=== PATIENT | female | born 1955 | race Caucasian/White ===

== ENCOUNTER 2023-03-16 09:55 | Outpatient (OUT) | payer MEDICARE, OTHER, SELFPAY ==
[2023-03-16 10:13] LABS: Basophils Percent Auto 0.3 % (0.2-2.0); Eosinophils Absolute Auto 0.1 10^3/uL (0.0-0.7); Hematocrit 39.2 % (36.0-48.0); Immature Granulocytes Abs Auto 0.02 10^3/uL (0.00-0.03); Immature Granulocytes Pct Auto 0.3 % (0.0-0.5); Lymphocytes Absolute Auto 1.4 10^3/uL (1.2-3.8); Mean Corpuscular HGB Conc 33.2 g/dL (29.9-35.2); Mean Corpuscular Hemoglobin 26.9 pg (26.7-34.0); Mean Corpuscular Volume 81.2 fL (81.0-99.0); Mean Platelet Volume 9.6 fL (9.5-13.5); Monocytes Absolute Auto 0.4 10^3/uL (0.3-0.8); Neutrophils Percent Auto 67.4 % (43.0-75.0); Platelet Count 237 10^3/uL (150-450); Red Blood Count 4.83 10^6/uL (4.20-5.40); Red Cell Distribution Width 13.3 % (11.0-15.0); White Blood Count 5.9 10^3/uL (4.0-11.0)
[2023-03-16 10:56] LABS: Estimated Average Glucose 229 mg/dL; Glycohemoglobin A1C 9.6 % (4.5-6.2)
[2023-03-16 11:41] LABS: Microalbumin Urine Random 1.7 mg/dL (<=30.0)
[2023-03-16 11:49] LABS: Alanine Aminotransferase 20 U/L (14-59); Albumin Level 3.8 g/dL (3.4-5.0); Alkaline Phosphatase 76 U/L (46-116); Anion Gap 14.1; Aspartate Amino Transferase 10 U/L (15-37); BUN Creatinine Ratio 24.7; Bilirubin Total 0.9 mg/dL (0.2-1.0); Carbon Dioxide 28.8 mmol/L (21.0-32.0); Chloride 100 mmol/L (98-107); Chol HDL Ratio 2.6; Cholesterol 185 mg/dL (<=200); Estimated GFR (African America >60 (>=60); Estimated GFR (Non-African Ame >60 (>=60); Globulin 3.7 g/dL; Glucose 180 mg/dL (74-106); HDL Cholesterol 72 mg/dL (40-60); Potassium 3.9 mmol/L (3.5-5.1); Sodium 139 mmol/L (136-145); Total Protein 7.5 g/dL (6.4-8.2); Triglycerides 107 mg/dL (<=150); VLDL CHOLESTEROL 21.4 mg/dL
== END 2023-03-16 09:56 | disposition home or self-care (01) ==
LOC: LAB 09:56
PROVIDERS: PCP Family Medicine; Visit Provider Family Medicine
DX: Z00.00 Encounter for general adult medical examination without abnormal findings (principal); E11.65 Type 2 diabetes mellitus with hyperglycemia; I10 Essential (primary) hypertension; E78.5 Hyperlipidemia, unspecified
CPT/HCPCS: 36415; 80053; 80061; 82043; 83036; 85025

== ENCOUNTER 2023-03-23 09:05 | Outpatient (OUT) | payer MEDICARE, OTHER, SELFPAY ==
--- NOTE | 2023-03-23 09:08 | MM_ITS ---
Patient Name: NATHANAEL KHAN MR#: [id number] : 1955 Exam Date: 03/23/2023 Ordering Doctor: DR Leticia Iglesias M.D. RADIOLOGY REPORT PROCEDURE: MM TOMOSYNTHESIS SCREENING BI COMPARISON: MG MAMM SCREEN 3D AYSE CAD, 08/20/2020. MG MAMM SCREEN AYSE W CAD, 02/13/2017. MG MAMM LT UNI W CAD DIG, 05/25/2014. MG MAMM AYSE SCRN W CAD DIG, 08/26/2013. INDICATIONS: Screening Calculator Name NCI Breast Cancer Risk Assessment Tool 5 Year Breast Cancer Risk 3.20% Lifetime Breast Cancer Risk 9.60% Personal Breast Cancer No Personal Ovarian Cancer No Treatments None Family Cancers Mother with breast cancer at age 42; Daughter with colon cancer at age 29. LOCATION: [facility] BREAST COMPOSITION: Scattered areas fibroglandular density. FINDINGS: DIAGNOSTIC CATEGORY 0--INCOMPLETE: NEED ADDITIONAL IMAGING EVALUATION. RIGHT BREAST: No significant suspicious finding. Scattered benign-appearing lymph nodes are present. No significant change has occurred. LEFT BREAST: Slight increase in size of a chronic circumscribed mass within the lower-outer quadrant, mid breast, not 10 mm in diameter. Spot magnification views and ultrasound evaluation recommended. RECOMMENDATIONS: ADDITIONAL MAMMOGRAPHIC VIEWS REQUIRED: LEFT BREAST - LEFT CRANIOCAUDAL SPOT MAGNIFICATION VIEW - LEFT OBLIQUE SPOT MAGNIFICATION VIEW - ULTRASOUND: LEFT BREAST PLEASE NOTE: A NORMAL MAMMOGRAM DOES NOT EXCLUDE THE POSSIBILITY OF BREAST CANCER. A CLINICALLY SUSPICIOUS PALPABLE LUMP SHOULD BE BIOPSIED. Dictated by: Foreign Carvalho M.D. on 03/28/2023 at 11:28 Approved by: Foreign Carvalho M.D. on 03/28/2023 at 11:43
== END 2023-03-23 09:06 | disposition home or self-care (01) ==
LOC: MAMMO 09:05
PROVIDERS: PCP Family Medicine; Visit Provider Family Medicine
DX: Z12.31 Encounter for screening mammogram for malignant neoplasm of breast (principal); Z80.3 Family history of malignant neoplasm of breast; Z80.0 Family history of malignant neoplasm of digestive organs; N63.23 Unspecified lump in the left breast, lower outer quadrant
CPT/HCPCS: 77063; 77067

== ENCOUNTER 2023-04-25 08:08 | Outpatient (OUT) | payer MEDICARE, OTHER, SELFPAY ==
--- NOTE | 2023-04-25 08:12 | US_ITS ---
Patient Name: NATHANAEL KHAN MR#: [id number] : 1955 Exam Date: 04/25/2023 Ordering Doctor: DR Leticia Iglesias M.D. RADIOLOGY REPORT PROCEDURE: MM DIAGNOSTIC MAMMO UNILAT LT, 04/25/2023, 08:16 US BREAST LT LIMITED, 04/25/2023, 08:27 COMPARISON: MM TOMOSYNTHESIS SCREENING BI, 03/23/2023. MG MAMM SCREEN 3D AYSE CAD, 08/20/2020. MG MAMM SCREEN AYSE W CAD, 02/13/2017. MG MAMM LT UNI W CAD DIG, 05/25/2014. INDICATIONS: abnormal mammogram R92.8 Calculator Name NCI Breast Cancer Risk Assessment Tool 5 Year Breast Cancer Risk 3.20% Lifetime Breast Cancer Risk 9.60% Personal Breast Cancer No Personal Ovarian Cancer No Treatments None Family Cancers Mother with breast cancer at age 42; Daughter with colon cancer at age 29. LOCATION: [facility] BREAST COMPOSITION: Scattered areas fibroglandular density. FINDINGS: DIAGNOSTIC CATEGORY 2--BENIGN FINDING: LEFT BREAST: Spot magnification views demonstrate persistence of a circumscribed 10 mm lesion within the lower-outer quadrant. Ultrasound evaluation demonstrates a benign-appearing simple cyst at the 2 o'clock position 5.5 cm from the nipple, 10 x 9 x 5 millimeters. RECOMMENDATIONS: ROUTINE MAMMOGRAM AND CLINICAL EVALUATION IN 12 MONTHS. PLEASE NOTE: A NORMAL MAMMOGRAM DOES NOT EXCLUDE THE POSSIBILITY OF BREAST CANCER. A CLINICALLY SUSPICIOUS PALPABLE LUMP SHOULD BE BIOPSIED. Dictated by: Foreign Carvalho M.D. on 04/25/2023 at 08:47 Approved by: Foreign Carvalho M.D. on 04/25/2023 at 08:57
--- NOTE | 2023-04-25 08:33 | MM_ITS ---
Patient Name: NATHANAEL KHAN MR#: [id number] : 1955 Exam Date: 04/25/2023 Ordering Doctor: DR Leticia Iglesias M.D. RADIOLOGY REPORT PROCEDURE: MM DIAGNOSTIC MAMMO UNILAT LT, 04/25/2023, 08:16 US BREAST LT LIMITED, 04/25/2023, 08:27 COMPARISON: MM TOMOSYNTHESIS SCREENING BI, 03/23/2023. MG MAMM SCREEN 3D AYSE CAD, 08/20/2020. MG MAMM SCREEN AYSE W CAD, 02/13/2017. MG MAMM LT UNI W CAD DIG, 05/25/2014. INDICATIONS: abnormal mammogram R92.8 Calculator Name NCI Breast Cancer Risk Assessment Tool 5 Year Breast Cancer Risk 3.20% Lifetime Breast Cancer Risk 9.60% Personal Breast Cancer No Personal Ovarian Cancer No Treatments None Family Cancers Mother with breast cancer at age 42; Daughter with colon cancer at age 29. LOCATION: [facility] BREAST COMPOSITION: Scattered areas fibroglandular density. FINDINGS: DIAGNOSTIC CATEGORY 2--BENIGN FINDING: LEFT BREAST: Spot magnification views demonstrate persistence of a circumscribed 10 mm lesion within the lower-outer quadrant. Ultrasound evaluation demonstrates a benign-appearing simple cyst at the 2 o'clock position 5.5 cm from the nipple, 10 x 9 x 5 millimeters. RECOMMENDATIONS: ROUTINE MAMMOGRAM AND CLINICAL EVALUATION IN 12 MONTHS. PLEASE NOTE: A NORMAL MAMMOGRAM DOES NOT EXCLUDE THE POSSIBILITY OF BREAST CANCER. A CLINICALLY SUSPICIOUS PALPABLE LUMP SHOULD BE BIOPSIED. Dictated by: Foreign Carvalho M.D. on 04/25/2023 at 08:47 Approved by: Foreign Carvalho M.D. on 04/25/2023 at 08:57
== END 2023-04-25 08:09 | disposition home or self-care (01) ==
LOC: MAMMO 08:08
PROVIDERS: PCP Family Medicine; Visit Provider Family Medicine
DX: R92.8 Other abnormal and inconclusive findings on diagnostic imaging of breast (principal); Z80.3 Family history of malignant neoplasm of breast; Z80.0 Family history of malignant neoplasm of digestive organs
CPT/HCPCS: 76642; 77065

== ENCOUNTER 2024-12-10 08:50 | Outpatient (OUT) | payer MEDICARE, OTHER, SELFPAY ==
--- OUTSIDE RECORDS SUMMARY | 2024-12-10 08:59 | XMS_ITS | Clinical Summary ---
Author Organization [facility] Address [address] [place], [place] [id number] Care Team Providers Care Mortgage Loan Funder Name Role Phone Leticia Iglesias MD Primary Care Provider [phone] Allergies No known active allergies Medications atorvastatin (LIPITOR) 40 mg tablet Take 40 mg by mouth once daily. Active FARXIGA 10 mg tablet Take 10 mg by mouth daily with breakfast. 12/21/2023 Active lisinopril (ZESTRIL) 10 mg tablet Take 10 mg by mouth once daily. Active metFORMIN (GLUCOPHAGE) 1,000 mg tablet Take 1,000 mg by mouth daily with breakfast. Active Social History Tobacco Use Types Packs/Day Years Used Date Smoking Tobacco: Never Assessed PHQ-2 Answer Date Recorded PHQ-2 score 0 01/20/2024 Area Deprivation Index Answer Date Otoniel rded National Score (1-100), lower number is lower ri sk 60 01/21/2024 State Score (1-10), lower number is lower risk 4 01/21/2024 Data from: https://www.neighborhoodatlas.medicine.[facility].edu/. Last address used for calculation [address] [place] [address] 01/21/2024 Comments Unknown Sex and Gender Information Value Date Recorded Sex Assigned at Not on file Legal Sex Female 11:57 AM EDT Gender Identity Not on file Sexual Orientation Not on file Last Filed Vital Signs Vital Sign Reading Time Taken Comments Blood Pressure - - Pulse - - Temperature - - Respiratory Rate - - Oxygen Saturation - - Inhaled Oxygen Concentration - - Weight 61.4 kg (135 lb 5.8 oz) 01/21/2024 2:07 P M EDT Height 180.3 cm (5' 11 ) 01/21/2024 2:07 PM EDT Body Mass Index 18.88 01/21/2024 2:07 PM EDT Plan of Treatment Health Maintenance Due Date Last Done Comments Anxiety Screening 12/19/1971 Depression Screening 12/19/1971 Hepatitis C Screening 12/19/[address] Colonography 1998 Cologuard (FIT-DNA) 1998 Colonoscopy 1998 Colorectal Cancer Screening 1998 Diabetes Screening 1998 Fecal Occult Blood 1998 Lipid Screening 1998 Sigmoidoscopy 1998 Pneumococcal Vaccine: 50+ (1 of 1 - PCV) 12/19/2003 Shingrix Vaccine (1 of 2) 12/19/2003 Bone Density Screening 2018 Advance Directive Discussion 04/30/2024 Influenza Vaccine (#1) 2024 , 03/02/2022, 02/04/2021, Additional history exists DTaP,Tdap,Td Vaccine (2 - Td or Tdap) 03/03/2029 03/03/2019 RSV Vaccine Completed 05/14/2023 Insurance MEDICARE Member Subscriber Plan / Payer (Ef fective 2018-Present) Name:Susanna Zacarias Member ID:[id number] Relation to Subscriber:Self Name:Susanna Zacarias Subscriber ID:[id number] Payer ID:Not on file Group ID:Not on file Type:Medicare Address: [address] MEDICARE SUPPLEMENT Care Teams Mortgage Loan Funder Relationship Specialty [place] [address] [place] [address] [phone] PCP - General Family Medicine 12/25/18
--- OUTSIDE RECORDS SUMMARY | 2024-12-10 09:03 | XMS_ITS | CCD ---
Author Organization [facility] Care Team Providers Care Resin Painter Name Role Phone DR FOREIGN CARVALHO Consulting Unavailable NUSRAT, DR LETICIA Rao Primary Care Unavailable NUSRAT, DR LETICIA Rao Attending Unavailable NUSRAT, DR LETICIA Rao Admitting Unavailable NUSRAT, DR LETICIA Rao Consulting Unavailable NUSRAT, DR LETICIA Rao Admitting Unavailable NUSRAT, DR LETICIA Rao Primary Care Unavailable NUSRAT, DR LETICIA Rao Consulting Unavailable NUSRAT, DR LETICIA Rao Attending Unavailable Leticia Silverio Leticia Silverio MD Primary Care Provider [phone] SELF Referring Unavailable LETICIA SILVERIO Primary Care Unavailable HERNAN BROWN Attending Nicole rao SELF Referring Unavailable LETICIA SILVERIO Primary Care Unavailable Leticia Silverio MD Primary Care Provider Zayda Castellano APRN Attending Provider Allergies Allergy Classification Reported Allergen(s) Allergy Type Date of Onset Reaction(s) Facility (1 source) patient allergy list reviewed by nurse or physicia Propensity to adverse reactions 5 Comment:Done [employer] Other (1 source) Allergies Reconciled Propensity to adverse reactions Unknown [employer] Other Medications Current Medications Medication Drug Class(es) Dates Sig (Normalized) Sig (Original) atorvastatin 40 mg oral tablet (12 sources) HMG-CoA Reductase Inhibitor Start: 07-23-2023 End: 05-14-2024 take 1 tablet by mouth once daily Atorvastatin 40 mg tablet Active 0 .ROUTE .COMPLEX 90 May 14, 2024 1:20pm TAKE 1 TABLET BY MOUTH DAILY Complies with drug therapy Start: 07-23-2023 End: 07-23-2023 take 1 tablet by mouth once daily Atorvastatin 40 mg tablet Discontinued 40 MG PO Daily July 23, 2023 12:00am July 23, 2023 3:16pm cephalexin 500 mg oral tablet (1 source) Cephalosporin Antibacterial Start: 11-08-2022 take 1 tablet by mouth every twelve hours Cephalexin 500 MG 1 tablet Orally Two times a day for 10 days Oct, Active dapagliflozin 10 mg oral tablet (17 sources) Sodium-Glucose Cotransporter 2 Inhibitor Start: 12-21-2023 take 1 tablet by mouth once daily at breakfast FARXIGA 10 mg tablet Take 10 mg by mouth daily with breakfast. 12/21/2023 Active Start: 07-23-2023 End: 07-03-2024 take 1 tablet by mouth once daily Dapagliflozin Propanediol (Farxiga) 10 mg tablet Active 0 .ROUTE .COMPLEX July 03, 2024 9:36am TAKE 1 TABLET BY MOUTH DAILY Complies with drug therapy Start: 07-23-2023 End: 07-23-2023 take 1 tablet by mouth once daily Dapagliflozin Propanediol (Farxiga) 10 mg tablet Discontinued 10 MG PO Daily July 23, 2023 12:00am July 23, 2023 3:16pm Start: 03-20-2023 take 1 tablet by juan jose th every twenty-four hours Farxiga 10 MG 1 tablet Orally Once a day for 30 day(s) Feb, Active Start: 08-25-2022 take 1 tablet by juan jose th every twenty-four hours FARXIGA 5 MG 1 tablet Orally Once a day for 90 days Jul, Active hydroCHLOROthiazide 12.5 mg / lisinopril 20 mg oral tablet (11 sources) Thiazide Diuretic, Angiotensin Converting Enzyme Inhibitor Start: 07-23-2023 End: 05-14-2024 take 1 tablet by mouth once daily Lisinopril-Hydrochlorothiazide 20-12.5 mg tablet Active 0 .ROUTE .COMPLEX May 14, 2024 1:20pm TAKE 1 TABLET BY MOUTH DAILY Complies with drug therapy Start: 07-23-2023 End: 07-23-2023 take 1 tablet by mouth once daily Lisinopril-Hydrochlorothiazide 20-12.5 m g tablet Discontinued 1 TAB PO Daily July 23, 2023 12:00am July 23, 2023 3:16pm take 1 tablet by juan jose th once daily Lisinopril-hydroCHLOROthiazide 20-12.5 M G TAKE ONE TABLET BY MOUTH DAILY for 90 Active lovastatin 10 mg oral tablet (7 sources) HMG-CoA Reductase Inhibitor Start: 04-11-2024 take 1 tablet by mouth once daily Lovastatin 10 mg tablet Active 10 MG PO Daily April 11, 2024 1:00am FreeTextSi tablet with the evening meal Orally Once a day; Note: Source Status: Continueunsure of dose; Provider: Nusrat Kelly ( ) Complies with drug therapy take 1 tablet by mouth once fernando y Lovastatin 10 MG 1 tablet with the evening meal Orally Once a day unsure of dose Active metFORMIN hydrochloride 1000 mg oral tablet (15 sources) Biguanide Start: 07-23-2023 End: 05-14-2024 take 1 tablet by mouth twice daily Metformin 1,000 mg tablet Active 0 .ROUTE .COMPLEX 180 May 14, 2024 1:20pm TAKE 1 TABLET BY MOUTH TWICE A DAY Complies with drug therapy Start: 07-23-2023 End: 07-23-2023 take 1 tablet by mouth twice daily Metformin 1,000 mg tablet Discontinued 1000 MG PO Twice daily July 23, 2023 12:00am July 23, 2023 3:16pm take 1 tablet by juan jose th once daily at breakfast metFORMIN (GLUCOPHAGE) 1,000 mg tablet Take 1,000 mg by mouth daily with breakfast. Active take 1 tablet by juan jose th twice daily metFORMIN HCl 1000 MG TAKE ONE TABLET BY MOUTH TWICE A DAY for 90 Active Completed/Discontinued Medications Medication Drug Class(es) Dates Sig (Normalized) Sig (Original) 30 ml bupivacaine hydrochloride 5 mg/ml injection (2 sources) Amide Local Anesthetic Start: 01-21-2024 End: 01-21-2024 BUPivacaine (PF) 0.5 % (5 mg/mL) 4 mL injection Start: 01-21-2024 End: 01-21-2024 4 mL, Injection - FOR ORTHO USE ONLY, ONCE, 1 dose, Starting on Sun01/21/24 at 1423, Until Sun01/21/24 at 1423 10 ml lidocaine hydrochloride 10 mg/ml injection (2 sources) Antiarrhythmic, Amide Local Anesthetic Start: 01-21-2024 End: 01-21-2024 lidocaine (PF) 10 mg/mL (1 %) 4 mL injection (XYLOCAINE) Start: 01-21-2024 End: 01-21-2024 4 mL, Injection - FOR ORTHO USE ONLY, ONCE, 1 dose, Starting on Sun01/21/24 at 1423, Until Sun01/21/24 at 1423 lisinopril 20 mg oral tablet (8 sources) Angiotensin Converting Enzyme Inhibitor Start: 04-11-2024 End: 05-09-2024 take 1 tablet by mouth once daily Lisinopril 20 mg tablet Discontinued 20 MG PO Daily April 11, 2024 1:00am May 09, 2024 9:44am FreeTextSi tablet Orally Once a day; Note: Source Status: Continueunsure of dose; Provider: Nusrat Kelly ( ) take 1 tablet by mouth once fernando y lisinopril (ZESTRIL) 10 mg tablet Take 10 mg by mouth once daily. Active take 1 tablet by juan jose th every twenty-four hours Lisinopril 20 MG 1 tablet Orally Once a day unsure of dose Active 1 ml triamcinolone acetonide 40 mg/ml injection (2 sources) Corticosteroid Start: 01-21-2024 End: 01-21-2024 triamcinolone acetonide 80 mg injection (KeNALog 40) Start: 01-21-2024 End: 01-21-2024 80 mg, Injection - FOR ORTHO USE ONLY, ONCE, 1 dose, Starting on Sun01/21/24 at 1423, Until Sun01/21/24 at 1423 Problems Active Problems Problem Classification Problem Date Documented Date Episodic/Chronic Diabetes mellitus with complications (11 sources) Type 2 diabetes mellitus with hyperglycemia; Translations: [Hyperglycemia due to type 2 diabetes mellitus] Onset: 08-20-2020 Chronic Diabetes mellitus without complication (1 source) Type 2 diabetes mellitus without complication; Translations: [Type 2 diabetes mellitus without complications] Onset: 11-10-2014 Chronic Disorders of lipid metabolism (8 sources) Hyperlipidemia, unspecified; Translations: [Pure hypercholesterolemia] Onset: 11-10-2014 Chronic Essential hypertension (10 sources) Essential (primary) hypertension; Translations: [Essential hypertension] Onset: 08-16-2020 Chronic Osteoarthritis (1 source) Osteoarthritis of left knee joint; Translations: [Unilateral primary osteoarthritis, left knee] 01-21-2024 Chronic Other circulatory disease (1 source) Elevated blood-pressure reading without diagnosis of hypertension; Translations: [Elevated blood-pressure reading, without diagnosis of hypertension] Episodic Other injuries and conditions due to external causes (1 source) History of fall; Translations: [History of falling] Episodic Other injuries and conditions due to external causes (2 sources) Injury of right ankle; Translations: [Unspecified injury of right ankle, initial encounter] 12-10-2024 Episodic Other non-traumatic joint disorders (3 sources) Pain in left knee; Translations: [Pain in joint, lower leg] Onset: 01-21-2024 01-21-2024 Episodic Other non-traumatic joint disorders (2 sources) Ankle pain; Translations: [Pain in right ankle and joints of right foot] 12-10-2024 Episodic Other screening for suspected conditions (not mental disorders or infectious disease) (12 sources) Encounter for screening mammogram for malignant neoplasm of breast; Translations: [Mammography abnormal] Onset: 05-12-2014 Episodic Residual codes; unclassified (1 source) Family history of malignant neoplasm of breast; Translations: [FAMILY HX MALIG NEOPLASM OF BREAST] Onset: 08-26-2020 Episodic Residual codes; unclassified (1 source) Family history of malignant neoplasm of digestive organs; Translations: [FAM HX MALIG NEOPLASM DIGESTIV ORGN] Onset: 08-26-2020 Episodic Residual codes; unclassified (1 source) Normal body mass index; Translations: [Body mass index (BMI) 22.0-22.9, adult] Episodic Past or Other Problems Problem Classification Problem Date Documented Date Episodic/Chronic Residual codes; unclassified (1 source) Family history of malignant neoplasm of gastrointestinal tract; Translations: [Family history of malignant neoplasm of digestive organs] Onset: 09-09-2013 Episodic Residual codes; unclassified (1 source) Family history of breast cancer; Translations: [Family history of malignant neoplasm of breast] Onset: 09-09-2013 Episodic Unclassified (1 source) Long-term current use of drug therapy; Translations: [Long-term (current) use of other medications] Onset: 01-20-2016 Results Test Name Value Interpretation Reference Range Facility CNOVon 01-21-2024 CNOV Office Visit (ORAVON ) NATHANAEL ZACARIAS ([id number]) 1955 F Date Time Provider Department 01/21/24 2:15 PM HERNAN BROWN During your visit today, we recorded the following information about you: Weight Height 61.4 kg 1.803 m Hernan Brown MD 01/21/2024 2:26 PM Signed CONSULT ORTHOPAEDIC: KNEE PRIMARY CARE PHYSICIAN: Leticia Silverio MD REFERRING PROVIDER: SELF ASSESSMENT AND PLAN Impression: Left Knee Severe Degenerative Osteoarthritis, Primary 68 year old healthy female with left knee end stage OA. Very active . Walks multiple miles per day. 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 Not ready for total knee arthroplasty at this time. Plan for left knee csi today Fu 3 mos Leonel follow Large Joint Arthro/Inj: L knee joint Informed Consent Consent Obtained: Verbal [place] Protocol A moment to CARE was completed. SIGN IN Sign in communication not applicable due to emergent procedure. Personnel directly involved with the procedure wore the appropriate PPE. Special Equipment: N/A Patient/Surrogate Stated/Verified: Patient name, Date of , Relevant allergies and Intended procedure TIME OUT Intended patient and procedure match the source document(s). Consent documented and matches the intended procedure. Relevant labs, photos, and/or imaging studies have been reviewed. Correct side/site marked and visible. Medications required for procedure verified. Fire risk assessed and interventions discussed. Implant(s) inserted. Correct implant(s) confirmed including size and side and Expiration date(s) reviewed. 01/21/2024 2:23 PM The procedure site was prepped in the usual sterile fashion. Site: L knee joint Medications: 80 mg triamcinolone acetonide 40 mg/mL Anesthetics: 4 mL lidocaine (PF) 10 mg/mL (1 %); 4 mL BUPivacaine (PF) 0.5 % (5 mg/mL) Outcome: Tolerated well, no immediate complications Post-injection instructions were reviewed with the patient and the patient voiced understanding of these instructions. SIGN OUT All instruments, equipment, possible retained foreign bodies accounted for. Diagnoses: (M25.562) Acute pain of left knee (primary encounter diagnosis) (M17.12) Primary osteoarthritis of left knee After discussion with Nathanael Zacarias, continued non-operative management of injection(s) was chosen. The patient currently has had six months of unsuccessful non-operative treatment as outlined in the HPI below and progressive symptoms. Progressive Symptoms Include: Pain impacting sleep or causing fatigue Pain impacting work Pain worsened by weight bearing Pain effecting living situation Pain limiting ability to stay fit and healthy Unable to ambulate 2 blocks without significant pain and dysfunction . The patient has been ordered: Office Visit on 01/21/24 Large Joint Arthro/Inj XR KNEE GENERAL 4V AP BOTH/PA BOTH/LAT/MERC LEFT atorvastatin (LIPITOR) 40 mg tablet FARXIGA 10 mg tablet lisinopril (ZESTRIL) 10 mg tablet metFORMIN (GLUCOPHAGE) 1,000 mg tablet No orders placed today. CONSULTS: Patient does not require consults for optimization at this time. Total Joint Arthroplasty: Risk Calculator Nathanael Zacarias has a 4.13% chance of NOT returning home at discharge for a Primary total Knee replacement. Nathanael's estimated Length of Stay is 2 days (Inpatient candidate). Nathanael's 30 day chance of readmission is 0.95%. Readmission Probability 0.95 % (within 30 days following surgery) Estimated LOS 2 days Discharge Disposition Probability D/C to Home 95.87 % D/C to SNF 4.13 % These calculations are based on the following factors: - 68 years of age - sex is not male - BMI of 18.88 kg/m2 - NarxCare score of 0 - 0 hospitalizations in the last 12 months - no history of heart disease - no history of diabetes - no history of COPD - no history of anemia - preoperative ambulation: independent community distances - 3 step(s) to enter home - bed location is on the first floor - bath location is on the first floor - caregiver is consistent - home is more than 150 miles away - PROMIS-10 Mental Health T score 50+ - Marital status: Risk Factors for Total Knee Arthroplasty (TKA) Major Risk Factors Obesity normal High: BMI > 40 Moderate: BMI 30-40 Normal: BMI < 30 Diabetes normal High: A1C > 8 Moderate: A1C 7-8 Normal: A1C < 7 Hx of DVT / PE normal High: dx of DVT / PE Normal: no dx of DVT / PE Smoking normal High: Current smoker Normal: Non smoker Narcotics Use normal High:NarxCare >=300 Moderate: 100-299 Normal: 0-99 Depression normal High: PHQ-9 >14 Moderate: PHQ-9 5-14 Normal: PHQ-9 < 5 Area Deprivation Index (YOEL) Moderate Risk High: YOEL Score > 75 Moderate: YOEL 50-75 Normal: YOEL < 50 Area Deprivation Index (YOEL) 01/21/2024 YOEL Score National Score 60 Patient Health Questionnaire (PHQ-9) 01/20/2024 (more content not included)... Normal [facility] Large Joint Arthro/Inj: L kn ee jointon 01-21-2024 Hernan Brown MD 01/21/2024 2:26 PM Large Joint Arthro/Inj: L knee joint Informed Consent Consent Obtained: Verbal [place] Protocol A moment to CARE was completed. SIGN IN Sign in communication not applicable due to emergent procedure. Personnel directly involved with the procedure wore the appropriate PPE. Special Equipment: N/A Patient/Surrogate Stated/Verified: Patient name, Date of , Relevant allergies and Intended procedure TIME OUT Intended patient and procedure match the source document(s). Consent documented and matches the intended procedure. Relevant labs, photos, and/or imaging studies have been reviewed. Correct side/site marked and visible. Medications required for procedure verified. Fire risk assessed and interventions discussed. Implant(s) inserted. Correct implant(s) confirmed including size and side and Expiration date(s) reviewed. 01/21/2024 2:23 PM The procedure site was prepped in the usual sterile fashion. Site: L knee joint Medications: 80 mg triamcinolone acetonide 40 mg/mL Anesthetics: 4 mL lidocaine (PF) 10 mg/mL (1 %); 4 mL BUPivacaine (PF) 0.5 % (5 mg/mL) Outcome: Tolerated well, no immediate complications Post-injection instructions were reviewed with the patient and the patient voiced understanding of these instructions. SIGN OUT All instruments, equipment, possible retained foreign bodies accounted for. [facility] XR KNEE 4V AP/PA BOTH+LAT/ME R LTon 01-21-2024 XR KNEE 4V AP/PA BOTH+LAT/CHRISTINE LT * * *Final Report* * * DATE OF EXAM: Jan 21 2024 1:49PM AFR 5202 - XR KNEE 4V AP/PA BOTH+LAT/CHRISTINE LT / PROCEDURE REASON: Acute pain of left knee * * * * Physician Interpretation * * * * EXAMINATION / TECHNIQUE: XR KNEE 4V AP/PA BOTH+LAT/CHRISTINE LT PATIENT/TECHNOLOGIST PROVIDED HISTORY: LEFT KNEE PAIN CLINICAL INFORMATION ( PROVIDED BY ORDERING CLINICIAN) : Acute pain of left knee COMPARISON: X-rays knee 4 view 02/05/2019. RESULT: No effusion, fracture and/or dislocation. Interval increase in left patellofemoral and medial tibiofemoral compartment narrowing. Vqsi-zc-tgmt articulation posteriorly of the left knee. Right knee shows similar moderate medial compartment joint space narrowing posteriorly with small osteophytes. Bilateral patellofemoral marginal osteophytes. IMPRESSION: Severe degenerative changes, as described of the left knee with moderate degenerative changes of the right knee. 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: [employer] Transcribe Date/Time: Jan 21 2024 1:54P Dictated by : JACEK SANTOS MD This examination was interpreted and the report reviewed and electronically signed by: JIGNESH LAYTON MD on Jan 21 2024 2:24PM EST DIVISION OF RADIOLOGY * * *Final Report* * * DATE OF EXAM: Jan 21 2024 1:49PM AFR 5202 - XR KNEE 4V AP/PA BOTH+LAT/CHRISTINE LT / PROCEDURE REASON: Acute pain of left knee * * * * Physician Interpretation * * * * EXAMINATION / TECHNIQUE: XR KNEE 4V AP/PA BOTH+LAT/CHRISTINE LT PATIENT/TECHNOLOGIST PROVIDED HISTORY: LEFT KNEE PAIN CLINICAL INFORMATION ( PROVIDED BY ORDERING CLINICIAN) : Acute pain of left knee COMPARISON: X-rays knee 4 view 02/05/2019. RESULT: No effusion, fracture and/or dislocation. Interval increase in left patellofemoral and medial tibiofemoral compartment narrowing. Fnid-ig-jujj articulation posteriorly of the left knee. Right knee shows similar moderate medial compartment joint space narrowing posteriorly with small osteophytes. Bilateral patellofemoral marginal osteophytes. DIVISION OF RADIOLOGY Provider, [facility] Layla john [place] - 01/21/2024 * * *Final Report* * * DATE OF EXAM: Jan 21 2024 1:49PM AFR 5202 - XR KNEE 4V AP/PA BOTH+LAT/CHRISTINE LT / PROCEDURE REASON: Acute pain of left knee * * * * Physician Interpretation * * * * EXAMINATION / TECHNIQUE: XR KNEE 4V AP/PA BOTH+LAT/CHRISTINE LT PATIENT/TECHNOLOGIST PROVIDED HISTORY: LEFT KNEE PAIN CLINICAL INFORMATION ( PROVIDED BY ORDERING CLINICIAN) : Acute pain of left knee COMPARISON: X-rays knee 4 view 02/05/2019. RESULT: No effusion, fracture and/or dislocation. Interval increase in left patellofemoral and medial tibiofemoral compartment narrowing. Etki-cs-ieau articulation posteriorly of the left knee. Right knee shows similar moderate medial compartment joint space narrowing posteriorly with small osteophytes. Bilateral patellofemoral marginal osteophytes. IMPRESSION IMPRESSION: Severe degenerative changes, as described of the left knee with moderate degenerative changes of the right knee. 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: PSCB Transcribe Date/Time: Jan 21 2024 1:54P Dictated by : JACEK SANTOS MD This examination was interpreted and the report reviewed and electronically signed by: JIGNESH LAYTON MD on Jan 21 2024 2:24PM EST [facility] Radiology Study observation (narrative) [facility] XR Knee - left 4 ViewsOrdere d By: [facility] Provider on 01-21-2024 [facility] MG MAMM SCREEN 3D AYSE CADon 08-20-2020 MG MAMM SCREEN 3D AYSE CAD Patient: NATHANAEL ZACARIAS Exam Date: 08/20/2020 : 1955 Gender:F Ordering : DR LETICIA SILVERIO M.D. Admission #: [id number] Family : Order #: [id number] CLICK HERE TO VIEW EXAM RADIOLOGY REPORT PROCEDURE: MAMMOGRAM SCREENING 3D BILATERAL CAD COMPARISON: MG MAMM LT UNI W CAD DIG, 05/25/2014. MG MAMM AYSE SCRN W CAD DIG, 08/26/2013. MG MAMM SCREEN AYSE W CAD, 02/13/2017. INDICATIONS: Screening mammography Calculator Name NCI Breast Cancer Risk Assessment Tool 5 Year Breast Cancer Risk 3.10% Lifetime Breast Cancer Risk 10.90% Personal Breast Cancer No Personal Ovarian Cancer No Treatments None Family Cancers Mother with breast cancer at age 42; Daughter with colon cancer at age 29. LOCATION: [facility] BREAST COMPOSITION: Scattered areas fibroglandular density. FINDINGS: DIAGNOSTIC CATEGORY 2--BENIGN FINDING: RIGHT BREAST: No significant suspicious finding. Scattered benign-appearing nodules are present. No significant change has occurred. LEFT BREAST: No significant suspicious finding. Scattered benign-appearing nodules are present. No significant change has occurred. RECOMMENDATIONS: ROUTINE MAMMOGRAM AND CLINICAL EVALUATION IN 12 MONTHS. PLEASE NOTE: A NORMAL MAMMOGRAM DOES NOT EXCLUDE THE POSSIBILITY OF BREAST CANCER. A CLINICALLY SUSPICIOUS PALPABLE LUMP SHOULD BE BIOPSIED. Dictated by: Foreign Carvalho M.D. on 08/20/2020 at 07:23 Approved by: Foreign Carvalho M.D. on 08/20/2020 at 07:28 Normal [facility] GLYCOHEMOGLOBIN A1Con 2020 ADA RECOMMENDATION ADA THERAPEUTIC TARGET 6.0 - 7.0 ACTION SUGGESTED > 7.0 Normal [facility] Comment on above: Performed By: #### A 1C #### [facility] [address] [place], [place] [id number] Zac Murray Glucose [Mass/Vol] 272 mg/dL Normal [facility] Comment on above: Performed By: #### A 1C #### [facility] [address] [place] [id number] Zac Terri HbA1c (Bld) [Mass fraction] 11.1 % Critically high <=6.0 [facility] Comment on above: Performed By: #### A 1C #### [facility] [address] [place], [place] [address] Zac Murray LIPID PROFILEon 08-16-2020 CHOL-HDL RATIO NORM SEE BELOW Normal [facility] Comment on above: Result Comment: 3.3 - 4.4 LOW RISK 4.4 - 7.1 AVERAGE RISK 7.1 - 11.0 MODERATE RISK >11.0 HIGH RISK Performed By: #### L IPID, CMP #### [facility] [address] [place], [place] [address] Zac Terri Cholesterol [Mass/Vol] 304 mg/dL Critically high <=200 [facility] Comment on above: Performed By: #### L IPID, CMP #### [facility] [address] [place] [address] Zac Terri Cholesterol in HDL [Mass/Vol] 52 mg/dL Normal [facility] Comment on above: Performed By: #### L IPID, CMP #### [facility] [address] [place] [address] Zac Terri Cholesterol in LDL [Mass/Vol] 198.0 mg/dL Normal [facility] Comment on above: Performed By: #### L IPID, CMP #### [facility] [address] [place] [address] Zac Terri Cholesterol.total/Ch olesterol in HDL [Mass ratio] 5.8 {ratio} Normal [facility] Comment on above: Performed By: #### L IPID, CMP #### [facility] [address] [place] [address] Zac Terri HDL NORMAL > or = 60 mg/dl - LO W CARDIOVASCULAR RISK <40 mg/dl - HIGH CARDIOVASCULAR RISK Normal [facility] Comment on above: Performed By: #### L IPID, CMP #### [facility] [address] [place] [address] Zca Terri LDL CALC NORMAL SEE BELOW Normal [facility] Comment on above: Result Comment: <100 mg/dl OPTIMAL 100 - 129 mg/dl NEAR OR ABOVE OPTIMAL 130 - 159 mg/dl BORDERLINE HIGH 160 - 189 mg/dl HIGH >190 mg/dl VERY HIGH Performed By: #### L IPID, CMP #### [facility] [facility] [address] [address] Zac Terri Triglyceride [Mass/Vol] 270 mg/dL Critically high <=150 [facility] Comment on above: Performed By: #### L IPID, CMP #### [facility] [address] [address] Zac Terri VLDL CALC 54.0 mg/dL Normal [facility] Comment on above: Performed By: #### L IPID, CMP #### [facility] [address] [place] [address] Zac Terri MICROALBUMIN, RAND URon 04- mALB 1.9 mg/L Normal <=30.0 [facility] Comment on above: Performed By: #### M ALBR #### [facility] [address] [place], [place] [id number] Zac Murray PROF 14(COMP METB)on 021 Albumin [Mass/Vol] 3.6 g/dL Normal 3.5-5.0 [facility] Comment on above: Performed By: #### L IPID, CMP #### [facility] [address] [place], [place] [id number] Zac Terri Albumin/Globulin [Mass ratio] 0.9 {ratio} Normal [facility] Comment on above: Performed By: #### L IPID, CMP #### [facility] [address] [place], [place] [id number] Zac Terri ALP [Catalytic activity/Vol] 126 U/L Normal 38-126 [facility] Comment on above: Performed By: #### L IPID, CMP #### [facility] [address] [place], [place] [id number] Zac Terri ALT [Catalytic activity/Vol] 20 U/L Normal 9-52 [facility] Comment on above: Performed By: #### L IPID, CMP #### [facility] [address] [place], [place] [id number] Zac Terri Anion gap [Moles/Vol] 12.1 mmol/L Normal [facility] Comment on above: Performed By: #### L IPID, CMP #### [facility] [address] [place], [place] [id number] Zac Terri AST [Catalytic activity/Vol] 12 U/L Critically low 14-36 [facility] Comment on above: Performed By: #### L IPID, CMP #### [facility] [address] [place], [place] [id number] Zac Terri Bilirubin [Mass/Vol] 0.8 mg/dL Normal 0.2-1.3 [facility] Comment on above: Performed By: #### L IPID, CMP #### [facility] [address] [address] Zac Terri Calcium [Mass/Vol] 9.1 mg/dL Normal 8.4-10.2 [facility] Comment on above: Performed By: #### L IPID, CMP #### [facility] [address] [address] Zac Terri Chloride [Moles/Vol] 100 mmol/L Normal 98-107 [facility] Comment on above: Performed By: #### L IPID, CMP #### [facility] [address] [place] [address] Zac Terri CO2 [Moles/Vol] 29.1 mmol/L Normal 22.0-30.0 [facility] Comment on above: Performed By: #### L IPID, CMP #### [facility] [address] [place] [address] Zac Terri Creatinine [Mass/Vol] 0.88 mg/dL Normal 0.52-1.04 [facility] Comment on above: Performed By: #### L IPID, CMP #### [facility] [address] [place] [address] Zac Terri EGFR-AF [place]ER >60 Normal >=60 [facility] Comment on above: Performed By: #### L IPID, CMP #### [facility] [address] [place] [address] Zac Terri EGFR-NON AF [place]ER >60 Normal >=60 [facility] Comment on above: Performed By: #### L IPID, CMP #### [facility] [address] [place] [address] Zac Terri Globulin (S) [Mass/Vol] 4.1 g/dL Normal [facility] Comment on above: Performed By: #### L IPID, CMP #### [facility] [address] [place] [address] Zac Terri Glucose [Mass/Vol] 287 mg/dL Critically high 74-106 [facility] Comment on above: Performed By: #### L IPID, CMP #### [facility] [address] [place], [place] [address] Zac Terri Potassium [Moles/Vol] 4.2 mmol/L Normal 3.4-5.0 [facility] Comment on above: Performed By: #### L IPID, CMP #### [facility] [address] [place], [place] [address] Zac Terri Protein [Mass/Vol] 7.7 g/dL Normal 6.1-8.2 [facility] Comment on above: Performed By: #### L IPID, CMP #### [facility] [address] [place], [place] [address] Zac Terri Sodium [Moles/Vol] 137 mmol/L Normal 137-145 [facility] Comment on above: Performed By: #### L IPID, CMP #### [facility] [address] [place], [place] [address] Zac Terri Urea nitrogen [Mass/Vol] 14.0 mg/dL Normal 7.0-17.0 [facility] Comment on above: Performed By: #### L IPID, CMP #### [facility] [address] [place], [place] [address] Zac Terri Urea nitrogen/Creatinine [Mass ratio] 15.9 mg/mg Normal [facility] Comment on above: Performed By: #### L IPID, CMP #### [facility] [address] [place], [place] [address] Zac Terri Vital Signs Date Time Vital Sign Value Performing Clinician Facility 12-10-2024 08:040 Body height 165.1 cm Leticia Silverio MD Work Phone: [facility] 12-10-2024 08:040 Body mass index (BMI) [Ratio] 21.1 kg/m2 Leticia Silverio MD Work Phone: [facility] 12-10-2024 08:26-0400 Body temperature 95.4 [degF] Leticia Silverio MD Work Phone: [facility] 12-10-2024 08:26-0400 Body weight 57.6 kg Leticia Silverio MD Work Phone: [facility] 12-10-2024 08:26-0400 Diastolic blood pressure 94 mm[Hg] Leticia Silverio MD Work Phone: [facility] 12-10-2024 08:26-0400 Heart rate 85 /min Leticia Silverio MD Work Phone: [facility] 12-10-2024 08:26-0400 SaO2% (BldA) [Mass fraction] 97 % Leticia Silverio MD Work Phone: [facility] 12-10-2024 08:26-0400 Systolic blood pressure 168 mm[Hg] Leticia Silverio MD Work Phone: [facility] 05-09-2024 08:42-0500 Body height 165.1 cm [facility] 05-09-2024 08:42-0500 Body mass index (BMI) [Ratio] 21.1 kg/m2 [facility] 05-09-2024 08:42-0500 Body weight 57.6 kg [facility] 05-09-2024 08:42-0500 Diastolic blood pressure 85 mm[Hg] [facility] 05-09-2024 08:42-0500 Heart rate 94 /min [facility] 05-09-2024 08:42-0500 Systolic blood pressure 135 mm[Hg] [facility] 01-21-2024 14:07-0400 Body height 180.3 cm Hernan Brown MD Work Phone: [facility] 01-21-2024 14:07-0400 Body mass index (BMI) [Ratio] 18.88 kg/m2 Hernan Brown MD Work Phone: [facility] 01-21-2024 14:07-0400 Body weight 61.4 kg Hernan Brown MD Work Phone: [facility] 03-20-2023 09:00-0500 Body height 165.1 cm Leticia Silverio Other [facility] Other 03-20-2023 09:00-0500 Body mass index (BMI) [Ratio] 21.1 kg/m2 Leticia Silverio Other [facility] Other 03-20-2023 09:00-0500 Body weight 57.52 kg Leticia Silverio Other [facility] [employer] Other 03-20-2023 09:00-0500 Diastolic blood pressure 82 mm[Hg] Leticia Silverio Other [facility] Other 03-20-2023 09:00-0500 Systolic blood pressure 117 mm[Hg] Leticia Silverio Other [employer] Other Encounters Encounter Date Encounter Type Care Provider Facility Start: 12-10-2024 End: 12-10-2024 ambulatory Leticia Silverio MD Work Phone: [facility] Work Phone: Start: 12-10-2024 End: 12-10-2024 Patient encounter procedure Zayda Castellano APRN [facility] Work Phone: Start: 05-09-2024 End: 05-09-2024 ambulatory [facility] Work Phone: Start: 05-09-2024 End: 05-09-2024 Patient encounter procedure [facility] Work Phone: Start: 04-11-2024 Non-patient / Non-visit [facility] Work Phone: Start: 01-21-2024 End: 01-21-2024 Office outpatient new 45 minutes Hernan Brown MD Work Phone: Orthopaedics Comment on above: Acute pain of left k nee (Primary Dx); Primary osteoarthritis of left knee Start: 01-21-2024 End: 01-21-2024 ambulatory SELF Facility:[facility] Start: 01-21-2024 End: 01-21-2024 Subsequent hospital visit by physician Smita Gallegos [facility] Work Phone: Radiology Comment on above: Acute pain of left k nee [M25.562] Start: 04-25-2023 End: 04-25-2023 ambulatory Leticia Silverio Other [facility] Other Start: 04-25-2023 Telephone encounter Leticia Silverio [facility] Start: 03-30-2023 End: 03-30-2023 ambulatory Leticia Silverio Other [employer] Other Start: 03-30-2023 Telephone encounter Leticia Silverio [facility] Start: 03-20-2023 End: 03-20-2023 ambulatory Leticia Silverio Other [employer] Other Start: 03-20-2023 Office outpatient vi sit [address] [facility] Start: 03-15-2023 End: 03-15-2023 ambulatory Leticia Silverio Other [employer] Other Start: 03-15-2023 Encounter for genera l adult medical examination without abnormal findings Leticia Silverio [facility] Start: 03-15-2023 Telephone encounter Leticia Silverio [facility] Start: 04-17-2022 Adult health examination Delphine Silverio Other [employer] Other Start: 08-20-2020 End: 08-21-[address] FOREIGN CARVALHO Facility:[facility] Start: 08-16-2020 End: 08-17-[address] LETICIA SILVERIO Facility:[facility] Procedures Date Procedure Procedure Detail Performing Clinician Start: 01-21-2024 Arthrocentesis aspir &/inj major jt/bursa w/o us Hernan Brown MD Work Phone: Start: 01-21-2024 Radiologic exam knee complete 4/more views Hernan Brown MD Work Phone: Start: 11-12-2015 Screening mammography M brayan Silverio Other Screening for malign ant neoplasm of breast Leticia Silverio Other Screening for malign ant neoplasm of colon Leticia Silverio Other Plan of Treatment Date Care Activity Detail Author Start: 03-03-2029 Urine microalbumin profile DTaP,Tdap,Td Vaccine (2 - Td or Tdap) [facility] Start: 04-25-2024 End: 04-25-2024 Patient encounter procedure 04/25/2024 11:30 AM EST Office Visit Orthopaedics [address] [place] [address] Hernan Brown MD [address] [place], [place] [id number] left knee csi Orthopaedics Comment on above: left knee csi Start: 12-30-2023 Covid-19 Vaccine () Covid-19 Vaccine () [facility] Start: 12-30-2023 Influenza vaccination Influenza Vacc ine (#1) [facility] Start: 04-30-2023 Advance Directive Discussion Advance Directive Discussion [facility] Start: 2018 Pneumococcal Vaccine : 65+ (1 of 1 - PCV) Pneumococcal Vaccine: 65+ (1 of 1 - PCV) [facility] Start: 2018 Screening for osteoporosis Bone Density Screening [facility] Start: 12-19-2003 Shingrix Vaccine (1 of 2) Shingrix Vaccine (1 of 2) [facility] Start: 1998 Diabetes Screening Diabetes Screenin g [facility] Start: 1998 Lipid panel Lipid Screening [facility] Start: 1998 Screening for malign ant neoplasm of colon [facility] Start: 1993 Screening for malign ant neoplasm of breast Mammogram Screening [facility] Start: 12-19-1971 Anxiety Screening Anxiety Screening [facility] Start: 12-19-1971 Depression Screening Depression Scre ening [facility] Start: 12-19-1971 Hepatitis C screening Hepatitis C Sc rajeev [facility] Comprehensive metabo lic 2000 panel - Serum or Plasma [facility] MG Breast - bilatera l Screening [facility] XR Ankle - right GE 3 Views [facility] Immunizations Immunization Date Immunization Notes Care Provider Fa cility 05-14-2023 influenza virus vaccine, unspecified formulation Hernan Brown MD Work Phone: [facility] 02-04-2021 COVID-19 Vaccine Pfizer - Documentation Purposes Only Leticia Silverio Other [facility] 02-04-2021 influenza virus vaccine, split virus (incl. purified surface antigen) Leticia Silverio Other [employer] Other 02-04-2021 influenza virus vaccine, unspecified formulation [facility] 07-17-2020 COVID-19 Vaccine Pfizer - Documentation Purposes Only Leticia Silverio Other [facility] 06-26-2020 COVID-19 Vaccine Pfizer - Documentation Purposes Only Leticia Silverio Other [facility] Payers Date Payer Category Payer Unknown MMO MMO MEDICARE SUPPLEMENT [id number] 2023-Present [phone] [address] [place] [address] Indemnity [id number] 2018 Medicare MEDICARE MEDICAR E A AND B [id number] 2018-Present [phone] [address] [address] [place] [address] Medicare [id number] 1959 Medicare [id number] 1961 Unknown [id number] 1953 Unknown [id number] 1955 Unknown [id number] Unknown MMO [id number] Social History Date Type Detail Facility Start: 01-20-2024 End: 01-21-2024 Sex Assigned At [facility] Tobacco smoking stat us NHIS Tobacco smoking consumption unknown [facility] Start: 01-20-2024 End: 01-21-2024 History of Social function [facility] Adult Depression Screening Assessment 0 [facility] Start: 1955 Sex assigned at Not on file C [facility] Start: 05-09-2024 End: 05-09-2024 Tobacco smoking status NHIS Never smoked tobacco (finding) [facility] Start: 05-09-2024 Sex Female (finding) [facility] Start: 1955 Sex Assigned At Female F [facility] Clinical Notes 03-15-2023 to 01-21-2024 Hernan Brown MD - 01/21/2024 2:05 PM EDTPArabella rdz RT(R) - 01/21/2024 2:00 PM EDT Note Date & Type Note Facility 01-21-2024 Note HNO ID: [id number] Author: HERNAN BROWN MD Service: ? Author Type: Physician Type: Progress Notes Filed: 01/21/2024 14:26 Note Text: CONSULT ORTHOPAEDIC: KNEE PRIMARY CARE PHYSICIAN: Leticia Silverio MD REFERRING PROVIDER: SELF ASSESSMENT AND PLAN Impression: Left Knee Severe Degenerative Osteoarthritis, Primary 68 year old healthy female with left knee end stage OA. Very active . Walks multiple miles per day. 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 Not ready for total knee arthroplasty at this time. Plan for left knee csi today Fu 3 mos Leonel follow Large Joint Arthro/Inj: L knee joint Informed Consent Consent Obtained: Verbal [place] Protocol A moment to CARE was completed. SIGN IN Sign in communication not applicable due to emergent procedure. Personnel directly involved with the procedure wore the appropriate PPE. Special Equipment: N/A Patient/Surrogate Stated/Verified: Patient name, Date of , Relevant allergies and Intended procedure TIME OUT Intended patient and procedure match the source document(s). Consent documented and matches the intended procedure. Relevant labs, photos, and/or imaging studies have been reviewed. Correct side/site marked and visible. Medications required for procedure verified. Fire risk assessed and interventions discussed. Implant(s) inserted. Correct implant(s) confirmed including size and side and Expiration date(s) reviewed. 01/21/2024 2:23 PM The procedure site was prepped in the usual sterile fashion. Site: L knee joint Medications: 80 mg triamcinolone acetonide 40 mg/mL Anesthetics: 4 mL lidocaine (PF) 10 mg/mL (1 %); 4 mL BUPivacaine (PF) 0.5 % (5 mg/mL) Outcome: Tolerated well, no immediate complications Post-injection instructions were reviewed with the patient and the patient voiced understanding of these instructions. SIGN OUT All instruments, equipment, possible retained foreign bodies accounted for. Diagnoses: (M25.562) Acute pain of left knee (primary encounter diagnosis) (M17.12) Primary osteoarthritis of left knee After discussion with Nathanael Zacarias, continued non-operative management of injection(s) was chosen. The patient currently has had six months of unsuccessful non-operative treatment as outlined in the HPI below and progressive symptoms. Progressive Symptoms Include: Pain impacting sleep or causing fatigue Pain impacting work Pain worsened by weight bearing Pain effecting living situation Pain limiting ability to stay fit and healthy Unable to ambulate 2 blocks without significant pain and dysfunction . The patient has been ordered: Office Visit on 01/21/24 Large Joint Arthro/Inj XR KNEE GENERAL 4V AP BOTH/PA BOTH/LAT/MERC LEFT atorvastatin (LIPITOR) 40 mg tablet FARXIGA 10 mg tablet lisinopril (ZESTRIL) 10 mg tablet metFORMIN (GLUCOPHAGE) 1,000 mg tablet No orders placed today. CONSULTS: Patient does not require consults for optimization at this time. Total Joint Arthroplasty: Risk Calculator Nathanael Zacarias has a 4.13% chance of NOT returning home at discharge for a Primary total Knee replacement. Nathanael's estimated Length of Stay is 2 days (Inpatient candidate). Nathanael's 30 day chance of readmission is 0.95%. Readmission Probability 0.95 % (within 30 days following surgery) Estimated LOS 2 days Discharge Disposition Probability D/C to Home 95.87 % D/C to SNF 4.13 % These calculations are based on the following factors: - 68 years of age - sex is not male - BMI of 18.88 kg/m2 - NarxCare score of 0 - 0 hospitalizations in the last 12 months - no history of heart disease - no history of diabetes - no history of COPD - no history of anemia - preoperative ambulation: independent community distances - 3 step(s) to enter home - bed location is on the first floor - bath location is on the first floor - caregiver is consistent - home is more than 150 miles away - PROMIS-10 Mental Health T score 50+ - Marital status: Risk Factors for Total Knee Arthroplasty (TKA) Major Risk Factors Obesity normal High: BMI > 40 Moderate: BMI 30-40 Normal: BMI < 30 Diabetes normal High: A1C > 8 Moderate: A1C 7-8 Normal: A1C < 7 Hx of DVT / PE normal High: dx of DVT / PE Normal: no dx of DVT / PE Smoking normal High: Current smoker Normal: Non smoker Narcotics Use normal High:NarxCare >=300 Moderate: 100-299 Normal: 0-99 Depression normal High: PHQ-9 >14 Moderate: PHQ-9 5-14 Normal: PHQ-9 < 5 Area Deprivation Index (YOEL) Moderate Risk High: YOEL Score > 75 Moderate: YOEL 50-75 Normal: YOEL < 50 Area Deprivation Index (YOEL) 01/21/2024 YOEL Score National Score 60 Patient Health Questionnaire (PHQ-9) 01/20/2024 PHQ-9 PHQ-2 Score 0 (0-4) minimal depression, (5-9) mild depression, (10-14) moderate depression, (15-19) moderately severe depression, (20-27) severe depression Bone Density Risk Screen Nathanael A Rell is at risk for bone los (more content not included)... [facility] 01-21-2024 History of Present illness Narrative Associated Order(s): Large Joint Arthro/Inj: L knee joint Post-Procedure Diagnose(s): Primary osteoarthritis of left knee Images from the original note were not included. CONSULT ORTHOPAEDIC: KNEE PRIMARY CARE PHYSICIAN: Leticia Silverio MD REFERRING PROVIDER: SELF ASSESSMENT & PLAN Impression: Left Knee Severe Degenerative Osteoarthritis, Primary 68 year old healthy female with left knee end stage OA. Very active . Walks multiple miles per day. 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 Not ready for total knee arthroplasty at this time. Plan for left knee csi today Fu 3 mos Leonel follow Large Joint Arthro/Inj: L knee joint Informed Consent Consent Obtained: Verbal [place] Protocol A moment to CARE was completed. SIGN IN Sign in communication not applicable due to emergent procedure. Personnel directly involved with the procedure wore the appropriate PPE. Special Equipment: N/A Patient/Surrogate Stated/Verified: Patient name, Date of , Relevant allergies and Intended procedure TIME OUT Intended patient and procedure match the source document(s). Consent documented and matches the intended procedure. Relevant labs, photos, and/or imaging studies have been reviewed. Correct side/site marked and visible. Medications required for procedure verified. Fire risk assessed and interventions discussed. Implant(s) inserted. Correct implant(s) confirmed including size and side and Expiration date(s) reviewed. 01/21/2024 2:23 PM The procedure site was prepped in the usual sterile fashion. Site: L knee joint Medications: 80 mg triamcinolone acetonide 40 mg/mL Anesthetics: 4 mL lidocaine (PF) 10 mg/mL (1 %); 4 mL BUPivacaine (PF) 0.5 % (5 mg/mL) Outcome: Tolerated well, no immediate complications Post-injection instructions were reviewed with the patient and the patient voiced understanding of these instructions. SIGN OUT All instruments, equipment, possible retained foreign bodies accounted for. Diagnoses: (M25.562) Acute pain of left knee (primary encounter diagnosis) (M17.12) Primary osteoarthritis of left knee After discussion with Nathanael Zacarias, continued non-operative management of injection(s) was chosen. The patient currently has had six months of unsuccessful non-operative treatment as outlined in the HPI below and progressive symptoms. Progressive Symptoms Include: Pain impacting sleep or causing fatigue Pain impacting work Pain worsened by weight bearing Pain effecting living situation Pain limiting ability to stay fit and healthy Unable to ambulate 2 blocks without significant pain and dysfunction . The patient has been ordered: Office Visit on 01/21/24 Large Joint Arthro/Inj XR KNEE GENERAL 4V AP BOTH/PA BOTH/LAT/MERC LEFT atorvastatin (LIPITOR) 40 mg tablet FARXIGA 10 mg tablet lisinopril (ZESTRIL) 10 mg tablet metFORMIN (GLUCOPHAGE) 1,000 mg tablet No orders placed today. CONSULTS: Patient does not require consults for optimization at this time. Total Joint Arthroplasty: Risk Calculator Nathanael Zacarias has a 4.13% chance of NOT returning home at discharge for a Primary total Knee replacement. Nathanael's estimated Length of Stay is 2 days (Inpatient candidate). Nathanael's 30 day chance of readmission is 0.95%. Readmission Probability 0.95 % (within 30 days following surgery) Estimated LOS 2 days Discharge Disposition Probability D/C to Home 95.87 % D/C to SNF 4.13 % These calculations are based on the following factors: - 68 years of age - sex is not male - BMI of 18.88 kg/m2 - NarxCare score of 0 - 0 hospitalizations in the last 12 months - no history of heart disease - no history of diabetes - no history of COPD - no history of anemia - preoperative ambulation: independent community distances - 3 step(s) to enter home - bed location is on the first floor - bath location is on the first floor - caregiver is consistent - home is more than 150 miles away - PROMIS-10 Mental Health T score 50+ - Marital status: Risk Factors for Total Knee Arthroplasty (TKA) Major Risk Factors Obesity normal High: BMI > 40 Moderate: BMI 30-40 Normal: BMI < 30 Diabetes normal High: A1C > 8 Moderate: A1C 7-8 Normal: A1C < 7 Hx of DVT / PE normal High: dx of DVT / PE Normal: no dx of DVT / PE Smoking normal High: Current smoker Normal: Non smoker Narcotics Use normal High:NarxCare >=300 Moderate: 100-299 Normal: 0-99 Depression normal High: PHQ-9 >14 Moderate: PHQ-9 5-14 Normal: PHQ-9 < 5 Area Deprivation Index (YOEL) Moderate Risk High: YOEL Score > 75 Moderate: YOEL 50-75 Normal: YOEL < 50 Area Deprivation Index (YOEL) 01/21/2024 YOEL Score National Score 60 Patient Health Questionnaire (PHQ-9) 01/20/2024 PHQ-9 PHQ-2 Score 0 (0-4) minimal depression, (5-9) mild depression, (10-14) moderate depression, (15-19) moderately severe depression, (20-27) severe depression Bone Density Risk Screen Nathanael Zacarias is at risk for bone loss and has not had a bone densitometry scan in the last 2 years (date of last scan: None on file). Recommend a bone densitometry scan and if indicated on the bone density results, a consult to a bone health specialist (Rheumatology, Endocrinology, or Women's Health) for bone assessment. Risk Factors: Additional Risk Factors Malnutrition: No Malnutrition Screening Tool (MST) score on file- please complete the MST screening tool (click here to open) and refresh the note. There is no problem list on file for this patient. SUBJECTIVE CHIEF COMPLAINT: left knee pain HPI: Nathanael Zacarias is a 68 year old patient with the presenting complaint of New and Pain of the Left Knee. Nathanael Zacarias has had progressive problems with the knee(s) constantly over the past 4 year(s) interfering with activities which include walking and standing for prolonged periods of time. The problem began limiting activities 1-6 months ago. Nathanael reports a current pain level of 5 (Knee-Left). She describes the pain as Sharp. The pain is Continuous, and has lasted for 4 Months. Interventions tried include Positioning. FALL RISK: Nathanael is not currently at risk for falls. PROMIS Physical Function Score Descriptive Summary for PROMIS Physical Function T-score = 46 (Percentile 34) Little difficulty - Walk more than a mile (1.6 km). Little difficulty - Do chores such as vacuuming or yard work. 01/20/2024 PROMIS CAT Physical Function T-Score 46 (within normal limits) Percentile 34 FUNCTIONAL STATUS: independent REVIEW OF SYSTEMS: PAIN ASSESSMENT: See HPI. MUSCULOSKELETAL: See HPI. No data to display No past medical history on file. No past surgical history on file. No family history on file. ALLERGIES: Patient has no known allergies. MEDICATIONS: FARXIGA 10 mg tablet Take 10 mg by mouth daily with breakfast. atorvastatin (LIPITOR) 40 mg tablet Take 40 mg by mouth once daily. lisinopril (ZESTRIL) 10 mg tablet Take 10 mg by mouth once daily. metFORMIN (GLUCOPHAGE) 1,000 mg tablet Take 1,000 mg by mouth daily with breakfast. OBJECTIVE PHYSICAL EXAM: Ht 180.3 cm (5' 11 ) Wt 61.4 kg (135 lb 5.8 oz) BMI 18.88 kg/m All other systems deferred. GENERAL: Appears healthy, well-nourished, no deformities. HABITUS: Normal GAIT: Antalgic to the left KNEE EXAM: Left: Alignment: varus Range of motion is 0 degrees in extension and 130 degrees of flexion. Extension La degrees Pain with ROM: No Effusion: None Tender to the palpation of medial joint line Pain with patellar compression: No Stability: Anterior/Posterior stable and Varus/Valgus stable Hip Exam: flexion to 100+ degrees, full extension, internal/external rotation adequate and no pain with log roll Neurovascular Status: Sensation Intact and Moves foot and ankle up & down DATA: Most recent knee imaging was completed on 01/21/2024 (XR KNEE GENERAL 4V AP BOTH/PA BOTH/LAT/MERC LEFT) . Attached is imaging for the order. Diagnostic tests reviewed for today's visit: Left knee X-Ray: Medial joint space noted to have severe degenerative changes SIGNATURE: Hernan Brown MD PATIENT NAME: Nathanael Zacarias DATE: January 21, 2024 TIME: 2:09 PM documented in this encounter [facility] 01-21-2024 History of Present illness Narrative Radiology Service Progress Note PATIENT NAME: Nathanael Zacarias DATE OF SERVICE: January 21, 2024 TIME: 1:44 PM PATIENT IDENTITY VERIFICATION COMPLETED USING TWO (2) IDENTIFIERS: Name and Date of confirmed by patient verbally. FALL SCREENING: Has the patient had 2 falls in the last year or 1 fall with injury or currently using an Ambulatory Assistive Device (Walker, Cane, Wheelchair, Crutches, etc.)? No PATIENT GENDER DATA: Female. status: : No status: NO. PATIENT RELEVANT IMPLANT DATA REVIEWED: Not Applicable PATIENT PRESENTS WITH AN IMPLANTABLE OR ATTACHED SURGERY TECH: No RADIOLOGY DEPARTMENT: General X-ray: Exam(s) Completed: Lower Extremity X-Ray(s): Knee, AP / Lat / Tunne / Merchant Left and Wt. Bearing PERIPHERAL IV DATA: Not applicable SIGNED BY: RT Melinda(R) January 21, 2024 1:44 PM documented in this encounter [facility] 01-21-2024 Note HNO ID: [id number] Author: ARABELLA MUNOZ RT(R) Service: Radiology Author Type: Technologist Type: Progress Notes Filed: 01/21/2024 13:47 Note Text: Radiology Service Progress Note PATIENT NAME: Nathanael Zacarias DATE OF SERVICE: January 21, 2024 TIME: 1:44 PM PATIENT IDENTITY VERIFICATION COMPLETED USING TWO (2) IDENTIFIERS: Name and Date of confirmed by patient verbally. FALL SCREENING: Has the patient had 2 falls in the last year or 1 fall with injury or currently using an Ambulatory Assistive Device (Walker, Cane, Wheelchair, Crutches, etc.)? No PATIENT GENDER DATA: Female. status: : No status: NO. PATIENT RELEVANT IMPLANT DATA REVIEWED: Not Applicable PATIENT PRESENTS WITH AN IMPLANTABLE OR ATTACHED SURGERY TECH: No RADIOLOGY DEPARTMENT: General X-ray: Exam(s) Completed: Lower Extremity X-Ray(s): Knee, AP / Lat / Tunne / Merchant Left and Wt. Bearing PERIPHERAL IV DATA: Not applicable SIGNED BY: RT Melinda(R) January 21, 2024 1:44 PM [facility] 04-25-2023 Evaluation note Encounter Date Diagnosis Assessment Notes Mar, Type 2 diabetes mellitus with hyperglycemia , without long-term current use of insulin (ICD-10 - E11.65) [facility] Other 12-01-2023 Evaluation note* Encounter Date Diagnosis Assessment Notes Treatment Notes Treatment Clinical Notes Mar, Abnormal mammogram (ICD-10 - R92.8) [facility] Other 11-21-2023 Evaluation note* Encounter Date Diagnosis Assessment Notes Treatment Notes Treatment Clinical Notes Feb, Type 2 diabetes mellitus with hyperglycemia, without long-term current use of insulin (ICD-10 - E11.65) Increased dose to 10mg daily. Gave 6 weeks of samples. Pt will call in 4-5 weeks with update in glucose readings for further treatment plans. Feb, HTN (hypertension) (ICD-10 - I10) Blood pressure remains well controlled at this time. Denies cardiac symptoms. Shows no signs or symptoms or poor control. Patient to continue with above medication and we will continue to monitor. Advised to pay attention to body and symptoms. Any developing patterns. Stay well hydrated. Feb, Hyperlipidemia, mild (ICD-10 - E78.5) Labs reviewed and discussed. [facility] Other 11-16-2023 Evaluation note* Encounter Date Diagnosis Assessment Notes Treatment Notes Treatment Clinical Notes Feb, Wellness examination (ICD-10 - Z00.00) [place] [facility] Other Evaluation noteNo InformationNort [facility] Other Evaluation note* Diagnosis Acute pain of left knee Acute pain of left knee- Primary Primary osteoarthritis of left knee Primary localized osteoarthrosis, lower leg [facility] Diagnosis Acute pain of left knee [facility]* Diagnosis Onset Date Resolution Status Admit Date Medicare annual wellness vis it, subsequent acute May 09 8:36am Screening mammogram for [facility] cancer acute May 09 8:36am Type 2 diabetes mellitus wit h hyperglycemia acute May 09 8:36am [facility] Work Phone: Evaluation note* Diagnosis Onset Date Resolution Status Admit Date Right ankle injury acute December 10, 2024 8:22am Right ankle pain acute November 282024 8:22am [facility] Work Phone: [facility] general Narrative - Reported* Type Description Date Surgical History ovarian cyst 1991 Surgical History tonsillectomy Surgical History C section Hospitalization History Child x2 [facility] Other [facility] general Narrative - Reported* Type Description Date Medical History HTN (hypertension) Medical History Hyperlipidemia, mild Medical History Type 2 diabetes praneeth itus with hyperglycemia, without long-term current use of insulin Surgical History ovarian cyst 1991 Surgical History tonsillectomy Surgical History C section Hospitalization History Child x2 [facility] Other Reason for referral (narrative)* Diagnostic Procedure Only (Routine) - Closed Specialty Diagnoses / Procedures Referred By Contac t Referred To Contact XR IMAGING Diagnoses Acute pain of left knee Procedures XR KNEE GENERAL 4V AP BOTH/PA BOTH/LAT/MERC LEFT RADIOLOGIC EXAM KNEE COMPLETE 4/MORE VIEWS Hernan Brown MD [address] [place] [address] [place] [id number] Referral ID Status Reason Start Date Expiration Date V isits Requested Visits Authorized [id number] Closed Auto-Generate d Referral 01/21/2024 02/19/2025 [facility] Diagnostic Procedure Only (Routine) - Closed Specialty Diagnoses / Procedures Referred By Contac t Referred To Contact XR IMAGING Diagnoses Acute pain of left knee Procedures XR KNEE GENERAL 4V AP BOTH/PA BOTH/LAT/MERC LEFT RADIOLOGIC EXAM KNEE COMPLETE 4/MORE VIEWS Hernan Brown MD [address] [place] [address] [place] [id number] Referral ID Status Reason Start Date Expiration Date V isits Requested Visits Authorized [id number] Closed Auto-Generate d Referral 01/21/2024 02/19/2025 1 [facility] for [facility] Work [facility]: Summary Purpose Family History Relationship Condition Age at Onset Recorded Date/T monica father Heart disease Unknown Unknown mother Malignant neoplasm Unknown Advance Directives Advance Directive Response Recorded Date/ Time Advance Directives No March 12:01pm Advance Directive Response Recorded Date/ Time Advance Directives No March 1:01pm Chief Complaint and Reason for Visit Chief Complaint Admit Date CC Adult Risk Stratification April 112023 1:31pm wellness,Med f/u May 09, 2024 8 :36am Reason for Visit Admit Date Medicare annual wellness visit, subseque nt May 09, 2024 8:36am Screening mammogram for breast cancer [facility] 2024 8:36am Type 2 diabetes mellitus with hyperglyce mikel May 09, 2024 8:36am Chief Complaint Admit Date Ankle injury December 10, 2024 8: 22am Reason for Visit Admit Date Right ankle injury December 10, 2024 8: 22am Right ankle pain December 10, 2024 8: 22am Additional Source Comments INFORMATION SOURCE (unrecogn ized section and content) DATE CREATED AUTHOR 08/27/2020 [facility] DATE CREATED AUTHOR 'S ORGANIZ ATION 01/23/2024 [facility] REASON FOR VISIT (unrecogniz ed section and content) Reason Comments New Pain Reason Comments Radio Gen RMP Specialty Diagnoses / Procedures Referred By Contac t Referred To Contact XR IMAGING Diagnoses Acute pain of left knee Procedures XR KNEE GENERAL 4V AP BOTH/PA BOTH/LAT/MERC LEFT RADIOLOGIC EXAM KNEE COMPLETE 4/MORE VIEWS Hernan Brown MD [address] [facility] [address] [place] [id number] Referral ID Status Reason Start Date Expiration Date V isits Requested Visits Authorized [id number] Closed Auto-Generate d Referral 01/21/2024 02/19/2025 1 1 Source Comments (unrecognize d section and content) In the event this informatio n is protected by the Federal Confidentiality of Alcohol and Drug Abuse Patient Records regulations: The Federal rules restrict any use of the information to criminally investigate or prosecute any alcohol or drug abuse patient.[facility] the event this information is protected by the Federal Confidentiality of Alcohol and Drug Abuse Patient Records regulations: The Federal rules restrict any use of the information to criminally investigate or prosecute any alcohol or drug abuse patient.[facility] Care Teams (unrecognized sec tion and content) Team Status: Active Member Role Status Dates Leticia Silverio MD Primary Care Provider Active Team Status: Inactive Member Role Status Dates Leticia Silverio MD Primary Care Provider Active Start: December 10, 2024 End: December 10, 2024 Zayda Castellano APRN PASTER SUPERVISORJohannaC Attending Provider Act mayo Start: December 10, 2024 End: December 10, 2024 Resin Painter Relationship Specialty Start Date End Date Leticia Silverio MD [address] [place] [address] PCP - [facility] 12/25/18 Resin Painter Relationship Specialty Start Date End Date Leticia Silverio MD [address] [place] [id number] PCP - [facility] 12/25/18 Team Status: Active Member Role Status Dates Leticia Silverio MD Primary Care Provider Active Team Status: Active Member Role Status Dates Leticia Silverio MD Primary Care Provide r, Attending Provider Active Start: April 11, 2024 Team Status: Inactive Member Role Status Dates Leticia Silverio MD Primary Care Provide r, Attending Provider Active Start: May 09, 2024 End: May 09, 2024 Team Status: Inactive Member Role Status Dates Leticia Silverio MD Primary Care Provider Active Start: December 10, 2024 End: December 10, 2024 Zayda Castellano APRN PASTER SUPERVISOR-C Attending Provider Act mayo Start: December 10, 2024 End: December 10, 2024 Goals (unrecognized section and content) Goals may be documented in a n alternate section FOR RECORDS PERTAINING TO PATIENTS WHO ARE OR HAVE BEEN ENROLLED IN A CHEMICAL DEPENDENCY/SUBSTANCEABUSE PROGRAM, SOME INFORMATION MAY BE OMITTED. This clinical summary was aggregated from multiple sources. Caution should be exercised in using it in the provision of clinical care. This summary normalizes information from multiple sources, and as a consequence, information in this document may materially change the coding, format and clinical context of patient data. In addition, data may be omitted in some cases. CLINICAL DECISIONS SHOULD BE BASED ON THE PRIMARY CLINICAL RECORDS. [facility]. provides no warranty or guarantee of the accuracy or completeness of information in this document.
--- NOTE | 2024-12-10 09:25 | XR_ITS ---
The [address] [address] Patient Name: NATHANAEL KHAN MRN: [id number] date: 1955 Sex: F Assigned Patient Location: [facility] Current Patient Location: [facility] Accession/Order Number: [id number] Exam Date: 12/10/2024 12:46 Report Date: 12/10/2024 12:46 At the request of: WILLIAM NOLASCO Procedure: XR ankle RT min 3V RIGHT ANKLE - 3 views CLINICAL HISTORY: Right ankle pain status post fall 1 week. COMPARISON: None FINDINGS: Soft tissue swelling is noted. Ankle mortise appears intact without acute bony process. Plantar spurring. XR/XR ankle RT min 3V IMPRESSION: SOFT TISSUE SWELLING WITHOUT ACUTE BONY PROCESS. Impression dictated by: Osiel Allen Jr.OCatherine 12/10/2024 12:46 PM Dictation Location[facility] Electronically authenticated by: [id number] Y Date: 12/10/2024 12:46
== END 2024-12-10 08:51 | disposition home or self-care (01) ==
LOC: RAD 08:57
PROVIDERS: PCP Family Medicine; Visit Provider Nurse Practitioner Family
DX: M25.571 Pain in right ankle and joints of right foot (principal); S99.911A Unspecified injury of right ankle, initial encounter; M25.471 Effusion, right ankle
CPT/HCPCS: 73610

== ENCOUNTER 2025-02-28 09:17 | Outpatient (OUT) | payer MEDICARE, OTHER, SELFPAY ==
--- OUTSIDE RECORDS SUMMARY | 2025-02-23 09:15 | XMS_ITS | Encounter Summary ---
Author Organization [facility] Address [address] [place] [address] Care Team Providers Care Film Booker Name Role Phone Mary Nelson DO Primary Care Provider [phone] Reason for Referral * Consultation (Routine) - AuthorizedSpecialtyDiagnoses / ProceduresReferred By ContactReferred To ContactGeneral Surgery Diagnoses Encounter for screening for malignant neoplasm of colon Procedures [facility] 60 MINUTES Mary Nelson DO [address] [facility] [address] [place] [address] Phone: tel: fax: Jermain Mahan, [address] [facility] [address] [place] [address] Phone: tel: fax: Referral IDStatusReasonStart DateExpiration DateVisits RequestedVisits [id number] Specialty Services Required / Reason for Visit * ReasonCommentsnew patient Encounter Details DateTypeDepartmentCare Team (Latest Contact Info)Olitbozxlvm15/27/2025 9:15 AM EDTOffice Visit [facility] [address] [facility] [address] [place] [address] Mary Nelson DO [address] [facility] [address] [place] [address] Type 2 diabetes mellitus with hyperglycemia, without long-term current use of insulin (HCC) (Primary Dx); Essential hypertension; Pure hypercholesterolemia; Other fatigue; Postmenopausal; Encounter for screening mammogram for malignant neoplasm of breast; Encounter for screening for malignant neoplasm of colon Social History Tobacco UseTypesPacks/DayYears UsedDateSmoking Tobacco: NeverSmokeless Tobacco: Never Tobacco Cessation:Counseling Given: Not Answered Alcohol UseStandard Drinks/WeekCommentsNever0 (1 standard drink = 0.6 oz pure alcohol)PHQ-2AnswerDate RecordedPatient Health Questionnaire-2 [id number] AUDIT-CAnswerDate RecordedQ1: How often do you have a drink containing alcohol? Never02/23/2025Q2: How many drinks containing alcohol do you have on a typical day when you are drinking?Patient does not drink02/23/2025Q3: How often do you have six or more drinks on one occasion?Never02/23/2025CommentsUnknown Sex and Gender InformationValueDate RecordedSex Assigned at BirthNot on file Legal IdkSogqec03/15/2023 6:54 PM EDTGender IdentityNot on fileSexual OrientationNot on filedocumented as of this encounter Last Filed Vital Signs Vital SignReadingTime TakenCommentsBlood Uflwkbxm803/7602/23/2025 9:11 AM EDT Vzmvs5963/27/2025 9:11 AM OGQYnaihysjcjo97.9 ??C (98.5 ??F)02/23/2025 9:11 AM EDTRespiratory Rate--Oxygen Nphedvapkq00%02/23/2025 9:11 AM EDTInhaled Oxygen Concentration--Gkebul15.6 kg (127 lb)02/23/2025 9:11 AM FEIQwvxmt345.8 cm (5' 4.5 )02/23/2025 9:11 AM EDTBody Mass Index21.4602/23/2025 9:11 AM EDTdocumented in this encounter Functional Status * AUDIT-C ScoreAnswerDate of GgbshiqlmvWekbez449/27/2025 9:13 AM Zayda James LPN * QuestionAnswerDate of AssessmentAuthorQ1: How often do you have a drink containing alcohol?Never02/23/2025 9:13 AM Zayda James LPNQ2: How many drinks containing alcohol do you have on a typical day when you are drinking?Patient does not drink02/23/2025 9:13 AM Zayda James LPNQ3: How often do you have six or more drinks on one occasion?Never02/23/2025 9:13 AM Zayda James LPN * Over the past 2 weeks, how often have you been bothered by any of the following problems?QuestionAnswerDate of AssessmentAuthorLittle interest or pleasure in doing thingsNot at all02/23/2025 9:10 AM Zayda James LPN Feeling down, depressed, or hopelessNot at all02/23/2025 9:10 AM Zayda James LPNPatient Health Questionnaire-2 Lxsga067 9:10 AM Zayda Cuevas LPN documented as of this encounter Progress Notes * Mary Nelson, DO - 02/23/2025 10:15 AM EDTAssociated Problem(s): Type 2 diabetes mellitus with hyperglycemia (HCC) During the appointment today all pertinent labs, imaging, health maintenance, and glucose readings were reviewed. Encouraged to check blood glucose throughout the day with some fasting and some PP readings. They are to bring their glucose meter/cgm in to all appointments. All of the patients questions, treatment options, and current care plan and goals were discussed. Acopy of this along with pertinent instructions were given to the patient at the end of the appointment. The patient voices understanding of all of this and is to call in between appointments if they have any problems or questions. Susanna Zacarias is struggling to gain control of their diabetes. I am very concerned for diabetes related complications. , Discussed dietary changes at length. Encouraged to limit simple carbs and focus more on healthy protein/fat with all meals and snacks. They should also avoid any sugary drinks. , Discussed importance of checking blood glucose regularly and bringing them in to their appointmentin order for me to better adjust their medications. , Instructed on the proper insulin injection technique either in the abdomen, upper outer thigh, or back of the arm. They are to rotate injection sites to prevent scar tissue. , Instructions given today include: Hypoglycemia management, Insulin instructions, and Dietary education. I don't think she is making much insulin on her own. Will start lantus. * Mary Nelson DO - 02/23/2025 9:15 AM EDT Images from the original note were not included. Susanna Zacarias is a 69 y.o. female presents with chief complaint of new patient HPI: Diabetes Mellitus Initial: Patient here for initial evaluation of diabetes mellitus. The initial diagnosis of diabetes was made around 2009 Symptoms at diagnosis include none- labs Previously tried medications include: none Complications include: none She has been checking her blood glucose 2-3 times a day. Bg have been higher the last year and struggling to get them down. Bg running 200-220 in the am, 150-180's in the afternoon. Has lost 50 lbs since diagnosed. Weight is similar for the last 10 yrs. Last A1c: Eye exam: 2024- [facility] [place] Annual labs: Due Current concerns include: Here to get established. Last seen her former [facility] tabatha castro 03/2024 Former ENDO: PCP Bg levels: 150-220 Diet: trying to limit carbs, doesn't snack Drinks: water, sugar free free ice tea, diet pop Exercise: none- due to left knee pain ( needs knee replacement) Hypoglycemia: none Breakfast: eggs and ham Lunch: not eating much Supper: ckn/pork, pasta, salad Snacks: fruit (grapes, melon, strawberries) SUBJECTIVE: PROBLEM LIST SOCIAL ALLERGIES: Problem List[1] Social History[2] Allergies[3] 02/23/2025 02/20/2025 16:32 Antidiabetic medications Dapagliflozin Propanediol 10 mg Daily PO (10 MG TABS) 10 mg Daily PO (10 MG TABS) Insulin Glargine 12 Units Daily SC metFORMIN HCl 1,000 mg BID with meals PO (1000 MG TABS) 1,000 mg BID with meals PO (1000 MG TABS) Labs [facility] [place] HEMOGLOBIN A1C/HEMOGLOBIN.TOTAL:MFR:PT:BLD:QN: 9.4 Outpatient prescription Medication marked as long-term Patient-reported The ASCVD Risk score (Cherise SANCHEZ, et al., 2019) failed to calculate for the following reasons: Cannot find a previous HDL lab Cannot find a previous total cholesterol lab * - Cholesterol units were assumed REVIEW OF SYMPTOMS: Review of Systems Constitutional: Negative for appetite change, fatigue, fever and unexpected weight change. HENT: Negative for congestion, ear pain, sinus pain, sore throat and trouble swallowing. Eyes: Negative for pain and visual disturbance. Respiratory: Negative for cough, shortness of breath and wheezing. Cardiovascular: Negative for chest pain, palpitations and leg swelling. No orthopnea Gastrointestinal: Negative for abdominal pain, blood in stool, constipation, diarrhea, nausea and vomiting. Genitourinary: Negative for dysuria and frequency. Musculoskeletal: Negative for arthralgias, back pain and myalgias. Skin: Negative for rash and wound. Neurological: Negative for dizziness, tremors, seizures, syncope, weakness, numbness and headaches. Psychiatric/Behavioral: Negative for confusion, hallucinations, sleep disturbance and suicidal ideas. The patient is not nervous/anxious. Hematological: Negative for adenopathy. OBJECTIVE: 02/23/2025 9:11 AM Vitals BMI 21.46 kg/m2 Systolic 120 Diastolic 76 Heart Rate 90 Temp 98.5 ??F Height (in) 5' 4.5 Weight (lb) 127 Visit Report Report Physical Exam Vitals reviewed. Constitutional: General: She is not in acute distress. HENT: Head: Normocephalic. Right Ear: Tympanic membrane and ear canal normal. Left Ear: Tympanic membrane and ear canal normal. Mouth/Throat: Mouth: Mucous membranes are moist. Pharynx: No posterior oropharyngeal erythema. Eyes: Extraocular Movements: Extraocular movements intact. Pupils: Pupils are equal, round, and reactive to light. Neck: Vascular: No carotid bruit. Cardiovascular: Rate and Rhythm: Normal rate and regular rhythm. Pulses: Normal pulses. Heart sounds: Normal heart sounds. No murmur heard. No friction rub. No gallop. Pulmonary: Breath sounds: Normal breath sounds. No wheezing, rhonchi or rales. Abdominal: General: Bowel sounds are normal. There is no distension. Palpations: Abdomen is soft. Tenderness: There is no abdominal tenderness. There is no guarding or rebound. Musculoskeletal: General: No swelling. Lymphadenopathy: Cervical: No cervical adenopathy. Skin: Findings: No lesion or rash. Neurological: General: No focal deficit present. Mental Status: She is alert and oriented to person, place, and time. Cranial Nerves: No cranial nerve deficit. Motor: No weakness. Deep Tendon Reflexes: Reflexes normal. Psychiatric: Mood and Affect: Mood normal. ASSESSMENT AND PLAN: Problem List Items Addressed This Visit Type 2 diabetes mellitus with hyperglycemia (HCC) - Primary During the appointment today all pertinent labs, imaging, health maintenance, and glucose readings were reviewed. Encouraged to check blood glucose throughout the day with some fasting and some PP readings. They are to bring their glucose meter/cgm in to all appointments. All of the patients questions, treatment options, and current care plan and goals were discussed. Acopy of this along with pertinent instructions were given to the patient at the end of the appointment. The patient voices understanding of all of this and is to call in between appointments if they have any problems or questions. Susanna Zacarias is struggling to gain control of their diabetes. I am very concerned for diabetes related complications. , Discussed dietary changes at length. Encouraged to limit simple carbs and focus more on healthy protein/fat with all meals and snacks. They should also avoid any sugary drinks. , Discussed importance of checking blood glucose regularly and bringing them in to their appointmentin order for me to better adjust their medications. , Instructed on the proper insulin injection technique either in the abdomen, upper outer thigh, or back of the arm. They are to rotate injection sites to prevent scar tissue. , Instructions given today include: Hypoglycemia management, Insulin ins tructions, and Dietary education. I don't think she is making much insulin on her own. Will start lantus. Relevant Medications insulin glargine (Lantus SoloStar) 100 UNIT/ML pen pen needle 33G x 4 mm misc Other Relevant Orders POCT glycosylated hemoglobin (Hb A1C) docked device (Completed) Comprehensive metabolic panel Lipid panel Microalbumin / creatinine urine ratio CBC and differential Essential hypertension Pure hypercholesterolemia Other Visit Diagnoses Other fatigue Relevant Orders TSH Postmenopausal Relevant Orders DEXA bone density Encounter for screening mammogram for malignant neoplasm of breast Relevant Orders Bilateral screening mammogram Encounter for screening for malignant neoplasm of colon Relevant Orders Ambulatory referral to General Surgery Follow up with Dr. Mary Nelson in 30 days (on 03/25/2025). Patient's Medications New Prescriptions INSULIN GLARGINE (LANTUS SOLOSTAR) 100 UNIT/ML PEN Inject 12 Units under the skin Daily PEN NEEDLE 33G X 4 MM MISC Injections subcutaneous daily Previous Medications ATORVASTATIN (LIPITOR) 40 MG TABLET Take 40 mg by mouth Daily DAPAGLIFLOZIN (FARXIGA) 10 MG Take 10 mg by mouth Daily LISINOPRIL-HYDROCHLOROTHIAZIDE 20-12.5 MG TABLET Take 1 tablet by mouth Daily METFORMIN (GLUCOPHAGE) 1000 MG TABLET Take 1,000 mg by mouth 2 (two) times a day with meals Modified Medications No medications on file Discontinued Medications LOVASTATIN (MEVACOR) 10 MG TABLET Take 10 mg by mouth at bedtime I have reviewed and reconciled the history and medication list with the patient today. [1] Patient Active Problem List Diagnosis Type 2 diabetes mellitus with hyperglycemia (HCC) Essential hypertension Pure hypercholesterolemia [2] Social History Tobacco Use Smoking status: Never Smokeless tobacco: Never Vaping Use Vaping status: Never Used Substance Use Topics Alcohol use: Never Drug use: Never [3] No Known Allergies documented in this encounter Plan of Treatment DateTypeDepartmentCare Team (Latest Contact Info)Ogqzoweixpb35/01/2025 2:00 PM ESTOffice Visit [facility] [address] [place] [id number] Mary Nelson DO [address] [place] [address] 05/25/2025 10:00 AM ESTOffice Visit [facility] [address] [facility] [address] [place] [id number] Pardeep Benito MD [address] [facility] [address] [place] [address] NameTypePriorityAssociated DiagnosesOrder ScheduleComprehensive metabolic panel LabRoutine Type 2 diabetes mellitus with hyperglycemia, without long-term current use of insulin (HCC) Ordered: 02/23/2025Lipid panelLabRoutine Type 2 diabetes mellitus with hyperglycemia, without long-term current use of insulin (HCC) Ordered: 02/23/2025Microalbumin / creatinine urine ratioLabRoutine Type 2 diabetes mellitus with hyperglycemia, without long-term current use of insulin (HCC) Ordered: 02/23/2025TSHLabRoutine Other fatigue Ordered: 02/23/2025BC and differentialLabRoutine Type 2 diabetes mellitus with hyperglycemia, without long-term current use of insulin (HCC) Ordered: 02/23/2025DEXA bone densityImagingRoutine Postmenopausal Expected: 02/23/2025 (Approximate), Expires: 02/23/2026ilateral screening mammogramImagingRoutine Encounter for screening mammogram for malignant neoplasm of breast Expected: 02/23/2025 (Approximate), Expires: 04/25/2026NameTypePriority Associated DiagnosesOrder ScheduleAmbulatory referral to General Surgery Outpatient ReferralRoutine Encounter for screening for malignant neoplasm of colon Expected: 02/23/2025 (Approximate), Expires: 08/24/2025documented as of this encounter Procedures Procedure NamePriorityDate/TimeAssociated DiagnosisCommentsPOCT GLYCOSYLATED HEMOGLOBIN (HGB A1C)Eiqmxql5902/23/2025 9:23 AM EDT Type 2 diabetes mellitus with hyperglycemia, without long-term current use of insulin (HCC) documented in this encounter Results * (ABNORMAL) POCT glycosylated hemoglobin (Hb A1C) docked device (02/23/2025 9:23 AM EDT)ComponentValueRef RangeTest MethodAnalysis TimePerformed At Pathologist SignatureHemoglobin A1C9.4Specimen (Source)Anatomical Location / LateralityCollection Method / VolumeCollection TimeReceived TimeBloodVenous blood specimen / Csvoxbr7402/23/2025 9:23 AM EDT Narrative Authorizing ProviderResult TypeResult StatusMary Nelson DOPOINT OF CARE TEST ENTER/EDIT ORDERABLESFinal Result documented in this encounter Visit Diagnoses Diagnosis Type 2 diabetes mellitus with hyperglycemia, without long-term current use of insulin (HCC)- Primary Essential hypertension Unspecified essential hypertension Pure hypercholesterolemia Other fatigue Postmenopausal Asymptomatic postmenopausal status (age-related) (natural) Encounter for screening mammogram for malignant neoplasm of breast Encounter for screening for malignant neoplasm of colon documented in this encounter Care Teams Team MemberRelationshipSpecialtyStart DateEnd Date Mary Nelson DO [address] [place] [address] PCP - GeneralFamily Kmswtqjf09/23/25documented as of this encounter
--- OUTSIDE RECORDS SUMMARY | 2025-02-28 09:21 | XMS_ITS | CCD ---
Author Organization [facility] Care Team Providers Care Art Editor Name Role Phone DR FOREIGN CARVALHO Consulting Unavailable NUSRAT, DR LETICIA Rao Primary Care Unavailable NUSRAT, DR LETICIA Rao Attending Unavailable NUSRAT, DR LETICIA Rao Admitting Unavailable NUSRAT, DR LETICIA Rao Consulting Unavailable NUSRAT, DR LETICIA Rao Admitting Unavailable SILVERIO, DR LETICIA Rao Primary Care Unavailable SILVERIO, DR LETICIA Rao Consulting Unavailable NUSRAT, DR LETICIA Rao Attending Unavailable Leticia Silverio Unavailable Leticia Silverio MD Primary Care Provider [phone] SELF Referring Unavailable LETICIA SILEVRIO Primary Care Unavailable HERNAN BROWN Attending Unavailpenny rao SELF Referring Unavailable LETICIA SILVERIO Primary Care Unavailable Leticia Silverio MD Primary Care Provider [phone] Zayda Castellano APRN Attending Provider [phone] Mary Conley DO Primary Care Provider [phone] MARY CONLEY Attending Unavailable Allergies Allergy ClassificationReported Allergen(s)Allergy TypeDate of OnsetReaction(s) Facility (1 source)patient allergy list reviewed by nurse or physiciaPropensity to adverse usklhtqia96-84-6976Nlsxocx:[facility] HospitalPl[facility] Other (1 source)Allergies ReconciledPropensity to adverse reactionsPorter Regional HospitalDreamLines Other Medications Current Medications MedicationDrug Class(es)DatesSig (Normalized)Sig (Original)atorvastatin 40 mg oral tablet (16 sources)HMG-CoA Reductase InhibitorStart: 69-54-5553byyw 1 tablet by mouth once dailyatorvastatin (Lipitor) 40 MG tablet Take 40 mg by mouth Daily 05/14/2024 ActiveStart: 07-23-2023 End: 23-83-0338zwht 1 tablet by mouth once dailyAtorvastatin 40 mg tablet Active 0 .ROUTE .COMPLEX 90 May 14, 2024 1:20pm TAKE 1 TABLET BY MOUTH DAILY Complies with drug therapyStart: 07-23-2023 End: 33-23-1975srzy 1 tablet by mouth once dailyAtorvastatin 40 mg tablet Discontinued 40 MG PO Daily July 23, 2023 12:00am July 23, 2023 3:16pm cephalexin 500 mg oral tablet (1 source)Cephalosporin AntibacterialStart: 05-36-6099yaso 1 tablet by mouth every twelve hoursCephalexin 500 MG 1 tablet Orally Two times a day for 10 days Oct, Activedapagliflozin 10 mg oral tablet (20 sources)Sodium-Glucose Cotransporter 2 InhibitorStart: 05-47-1177jpla 10 mg by mouth once dailydapagliflozin (Farxiga) 10 MG Take 10 mg by mouth Daily 07/03/2024 ActiveStart: 83-20-5426vqiv 1 tablet by mouth once daily at breakfast FARXIGA 10 mg tablet Take 10 mg by mouth daily with breakfast. 12/21/2023 Active Start: 07-23-2023 End: 15-98-1051exlc 1 tablet by mouth once dailyDapagliflozin Propanediol (Farxiga) 10 mg tablet Active 0 .ROUTE .COMPLEX 90 July 03, 2024 9:36amTAKE 1 TABLET BY MOUTH DAILY Complies with drug therapyStart: 07-23-2023 End: 85-34-5464lfsf 1 tablet by mouth once dailyDapagliflozin Propanediol (Farxiga) 10 mg tablet Discontinued 10 MG PO Daily July 23, 2023 12:00am July 23, 2023 3:16pmStart: 09-40-9139tsdr 1 tablet by mouth every twenty-four hoursFarxiga 10 MG 1 tablet Orally Once a day for 30 day(s) Feb, Active Start: 88-19-6226amed 1 tablet by mouth every twenty-four hoursFARXIGA 5 MG 1 tablet Orally Once a day for 90 days Jul, ActivehydroCHLOROthiazide 12.5 mg / lisinopril 20 mg oral tablet (15 sources)Thiazide Diuretic, Angiotensin Converting Enzyme InhibitorStart: 15-46-8690gewz 1 tablet by mouth once dailylisinopril-hydroCHLOROthiazide 20- 12.5 MG tablet Take 1 tablet by mouth Daily 05/14/2024 ActiveStart: 07-23-2023 End: 18-83-3519evas 1 tablet by mouth once dailyLisinopril-Hydrochlorothiazide 20-12.5 mg tablet Active 0 .ROUTE .COMPLEX 90 May 14, 2024 1:20pm TAKE 1 TABLET BY MOUTH DAILY Complies with drug therapyStart: 07-23-2023 End: 94-60-4007fdbk 1 tablet by mouth once dailyLisinopril-Hydrochlorothiazide 20-12.5 mg tablet Discontinued 1 TAB PO Daily July 23, 2023 12:00am July 23, 2023 3:16pmtake 1 tablet by mouth once dailyLisinopril-hydroCHLOROthiazide 20-12.5 MG TAKE ONE TABLET BY MOUTH DAILY for 90 Active3 ml insulin glargine 100 unt/ml pen injector (3 sources)Insulin AnalogStart: 31-09-0924jmdvxbz glargine (Lantus SoloStar) 100 UNIT/ML pen Indications: Type 2 diabetes mellitus with hyperglycemia, without long-term current use of insulin ([facility]) Inject 12 Units under the skin Daily 15 mL 3 02/23/2025 ActiveStart: 57-58-0702jitrcku glargine (Lantus SoloStar) 100 UNIT/ML pen Indications: Type 2 diabetes mellitus with hyperglycemia, without long-term current use of insulin (HCC) Inject 12 Units under the skin Daily 15 mL 3 02/23/2025 ActivemetFORMIN hydrochloride 1000 mg oral tablet (19 sources)BiguanideStart: 93-40-2049iqwb 1 tablet by mouth twice daily at mealtimemetFORMIN (Glucophage) 1000 MG tablet Take 1,000 mg by mouth 2 (two) times a day with meals 05/14/2024 ActiveStart: 07-23-2023 End: 47-34-7761yoeu 1 tablet by mouth twice dailyMetformin 1,000 mg tablet Active 0 .ROUTE .COMPLEX 180 May 14, 2024 1:20pm TAKE 1 TABLET BY MOUTH TWICE A DAY Complies with drug therapyStart: 07-23-2023 End: 74-43-6244oiwa 1 tablet by mouth twice dailyMetformin 1,000 mg tablet Discontinued 1000 MG PO Twice daily July 23, 2023 12:00am July 23, 2023 3:16pmtake 1 tablet by mouth once daily at breakfastmetFORMIN (GLUCOPHAGE) 1,000 mg tablet Take 1,000 mg by mouth daily with breakfast. Activetake 1 tablet by mouth twice dailymetFORMIN HCl 1000 MG TAKE ONE TABLET BY MOUTH TWICE A DAY for 90 Activepen needle 33G x 4 mm misc (3 sources)Start: 13-39-0213tok needle 33G x 4 mm misc Indications: Type 2 diabetes mellitus with hyperglycemia, without long-term current use of insulin (HCC) Injections subcutaneous daily 100 each 3 02/23/2025 Active Completed/Discontinued Medications MedicationDrug Class(es)DatesSig (Normalized)Sig (Original)30 ml bupivacaine hydrochloride 5 mg/ml injection (2 sources)Amide Local AnestheticStart: 01-21-2024 End: 63-45-9468ICEdnxnevlp (PF) 0.5 % (5 mg/mL) 4 mL injectionStart: 01-21-2024 End: mL, Injection - FOR ORTHO USE ONLY, ONCE, 1 dose, Starting on Sun01/21/24 at 1423, Until Sun01/21/24 at 608072 ml lidocaine hydrochloride 10 mg/ml injection (2 sources)Antiarrhythmic, Amide Local AnestheticStart: 01-21-2024 End: 30-45-3932ykldenlog (PF) 10 mg/mL (1 %) 4 mL injection (XYLOCAINE)Start: 01-21-2024 End: mL, Injection - FOR ORTHO USE ONLY, ONCE, 1 dose, Starting on Sun01/21/24 at 1423, Until Sun01/21/24 at 1423lisinopril 20 mg oral tablet (8 sources)Angiotensin Converting Enzyme InhibitorStart: 04-11-2024 End: 18-70-7337vbfy 1 tablet by mouth once dailyLisinopril 20 mg tablet Discontinued 20 MG PO Daily April 11, 2024 1:00am May 09, 2024 9:44am FreeTextSi tablet Orally Once a day; Note: Source Status: Continueunsure of dose; Provider: Nusrat Kelly ( )take 1 tablet by mouth once daily lisinopril (ZESTRIL) 10 mg tablet Take 10 mg by mouth once daily. Activetake 1 tablet by mouth every twenty-four hoursLisinopril 20 MG 1 tablet Orally Once a day unsure of dose Activelovastatin 10 mg oral tablet (9 sources)HMG-CoA Reductase InhibitorStart: 04-11-2024 End: 92-26-9378ccns 1 tablet by mouth at bedtimelovastatin (Mevacor) 10 MG tablet Take 10 mg by mouth at bedtime 04/11/2024 02/20/2025 Discontinuedtake 1 tablet by mouth once dailyLovastatin 10 MG 1 tablet with the evening meal Orally Once a day unsure of dose Active1 ml triamcinolone acetonide 40 mg/ml injection (2 sources)CorticosteroidStart: 01-21-2024 End: 89-37-0244pfesmpiesvqsb acetonide 80 mg injection (KeNALog 40)Start: 01-21-2024 End: 30-33-103014 mg, Injection - FOR ORTHO USE ONLY, ONCE, 1 dose, Starting on Sun01/21/24 at 1423, Until Sun01/21/24 at 1423 Problems Active Problems Problem ClassificationProblemDateDocumented DateEpisodic/ChronicDiabetes mellitus with complications (17 sources)Type 2 diabetes mellitus with hyperglycemia; Translations: [Hyperglycemia due to type 2 diabetes mellitus]Onset: 84-83-0352DnzeizgQhaymbse mellitus without complication (1 source)Type 2 diabetes mellitus without complication; Translations: [Type 2 diabetes mellitus without complications]Onset: 21-53-0364LbhvkzqUcznltzhg of lipid metabolism (13 sources)Hyperlipidemia, unspecified; Translations: [Pure hypercholesterolemia]Onset: 38-09-4695EyejqhwSeevyauqj hypertension (15 sources)Essential (primary) hypertension; Translations: [Essential hypertension]Onset: 90-85-9887PxqfkooCpczszg and fatigue (2 sources)Fatigue; Translations: [Other fatigue]48-71-7900Bsshxrtf Osteoarthritis (1 source)Osteoarthritis of left knee joint; Translations: [Unilateral primary osteoarthritis, left knee]83-05-9130GdeqcahQotjn circulatory disease (1 source)Elevated blood-pressure reading without diagnosis of hypertension; Translations: [Elevated blood-pressure reading, without diagnosis of hypertension]EpisodicOther injuries and conditions due to external causes (1 source)History of fall; Translations: [History of falling]EpisodicOther injuries and conditions due to external causes (2 sources)Injury of right ankle; Translations: [Unspecified injury of right ankle, initial encounter]73-57-0215LnkurohcGzbnq non-traumatic joint disorders (3 sources)Pain in left knee; Translations: [Pain in joint, lower leg]Onset: 696733-53-3974LjwdjfnuAmxky non-traumatic joint disorders (2 sources)Ankle pain; Translations: [Pain in right ankle and joints of right foot]55-30-5623XwzryifsUdkvk screening for suspected conditions (not mental disorders or infectious disease) (16 sources)Encounter for screening mammogram for malignant neoplasm of breast; Translations: [Mammography abnormal]Onset: 22-03-1273BagfghlrJwgycgkf codes; unclassified (1 source)Family history of malignant neoplasm of breast; Translations: [FAMILY HX MALIG NEOPLASM OF BREAST]Onset: 07-49-4946VbpehuwrRuvcdsef codes; unclassified (1 source)Family history of malignant neoplasm of digestive organs; Translations: [FAM HX MALIG NEOPLASM DIGESTIV ORGN]Onset: 29-66-2708Qzecxavt Residual codes; unclassified (1 source)Normal body mass index; Translations: [Body mass index (BMI) 22.0- 22.9, adult]EpisodicResidual codes; unclassified (2 sources)Postmenopausal state; Translations: [Asymptomatic menopausal state] 39-83-1703Smmwzhlx Past or Other Problems Problem ClassificationProblemDateDocumented DateEpisodic/ChronicResidual codes; unclassified (1 source)Family history of malignant neoplasm of gastrointestinal tract; Translations: [Family history of malignant neoplasm of digestive organs]Onset: 73-82-8807HwbdbmsvPitingaz codes; unclassified (1 source)Family history of breast cancer; Translations: [Family history of malignant neoplasm of breast]Onset: 29-73-4484RuntrpkmBhklgtkaywta (1 source)Long-term current use of drug therapy; Translations: [Long-term (current) use of other medications]Onset: 80-54-0383Lxvaxzcsqogy (2 sources)Patient encounter -21-2732 Results Test NameValueInterpretationReference WiwvhJfpyoqmbYyC6z (Bld) [Mass fraction]on 56-11-0726Gbplytxmtqcfth and review of laboratory resultsFort Memorial HospitalLaboratory - Hematology and Cell countson 79-46-1553UxM1s (Bld) [Mass fraction]9.4 %[facility] CenterCNOVon 07-33-8232MSWSNcugbu Visit (ORAVON) NATHANAEL ZACARIAS ([id number]) 1955 F Date Time Provider Department 01/21/24 [...] knee joint Informed Consent Consent Obtained: Verbal [place] Protocol A moment to CARE was completed. [...] of left knee After discussion with Nathanael Baltazar Rell, continued non-operative management of injection(s) was chosen. [...] Health Questionnaire (PHQ-9) 01/20/2024 (more content not included)...NormalRegency Hospital [facility] Joint Arthro/Inj: L knee jointon 44-59-5433EbtlHernan Blanchard MD 01/21/2024 2:26 PM Large Joint Arthro/Inj: L knee joint Informed Consent Consent Obtained: Verbal [place] Protocol A moment to CARE was completed. [...] instruments, equipment, possible retained foreign bodies accounted for.[facility] CenterXR KNEE 4V AP/PA BOTH+LAT/CHRISTINE LTon 34-68-6655RH KNEE 4V AP/PA BOTH+LAT/CHRISTINE LT* * *Final Report* * * DATE OF [...] left patellofemoral and medial tibiofemoral compartment narrowing. Daat-vt-zpue articulation posteriorly of the left knee. Right knee shows similar moderate medial compartment joint space narrowing posteriorly with small osteophytes. Bilateral patellofemoral marginal osteophytes. IMPRESSION: Severe degenerative changes, as described of the left knee with moderate degenerative changes of the right knee. Photographic Engineer: MARIANNA Transcribe Date/Time: Jan 21 2024 1:54P Dictated by : JACEK SANTOS MD This examination was interpreted and the report reviewed and electronically signed by: JIGNESH LAYTON MD on Jan 21 2024 2:24PM EST [id number] Berger HospitalXR Knee - left 4 Viewson 83-53-9467NKXFVVECFO: Severe degenerative changes, as described of the left knee with moderate degenerative changes of the right knee. Photographic Engineer: PSCB Transcribe Date/Time: Jan 21 2024 1:54P Dictated by : JACEK SANTOS MD This examination was interpreted and the report reviewed and electronically signed by: JIGNESH LAYTON MD on Jan 21 2024 2:24PM EST DIVISION OF RADIOLOGY* * *Final Report* * * DATE OF [...] left patellofemoral and medial tibiofemoral compartment narrowing. Qhvz-qm-brbj articulation posteriorly of the left knee. Right knee shows similar moderate medial compartment joint space narrowing posteriorly with small osteophytes. Bilateral patellofemoral marginal osteophytes. DIVISION OF RADIOLOGYProvider, [facility] [place] - 01/21/2024 * * *Final Report* * [...] left patellofemoral and medial tibiofemoral compartment narrowing. Lvnl-tf-audc articulation posteriorly of the left knee. Right knee shows similar moderate medial compartment joint space narrowing posteriorly with small osteophytes. Bilateral patellofemoral marginal osteophytes. IMPRESSION IMPRESSION: Severe degenerative changes, as described of the left knee with moderate degenerative changes of the right knee. Photographic Engineer: PSCB Transcribe Date/Time: Jan 21 2024 1:54P Dictated by : JACEK SANTOS MD This examination was interpreted and the report reviewed and electronically signed by: JIGNESH LAYTON MD on Jan 21 2024 2:24PM [facility] HospitalRadiology Study observation (narrative)[facility]XR Knee - left 4 ViewsOrdered By: Ccf Provider on 48-27-0643Impeivtai ClinicMG MAMM SCREEN 3D AYSE CADon 00-57-2328TJ MAMM SCREEN 3D AYSE CADPatient: NATHANAEL ZACARIAS Exam Date: 08/20/2020 : 1955 Gender:F Ordering : DR LETICIA SILVERIO M.D. Admission #: [id number] Family : Order #: [id number] CLICK HERE TO VIEW EXAM RADIOLOGY REPORT [...] colon cancer at age 27. LOCATION: [facility] BREAST COMPOSITION: Scattered areas fibroglandular density. FINDINGS: [...] by: Foreign Carvalho M.D. on 08/20/2020 at 07:28[facility] Medical CenterGLYCOHEMOGLOBIN A1Con 01-04-0966DNR RECOMMENDATIONADA THERAPEUTIC TARGET 6.0 - 7.0 ACTION SUGGESTED > 7.0NoOhioHealth Marion General HospitalComment on above: Performed By: #### A1C #### [facility] [address] [place], [place] [address] Zac KarenGlucose [Mass/Vol]272 mg/dLMetroHealth Main Campus Medical CenterComascension providence hospital on above:Performed By: #### A1C #### [facility] [address] [place], [place] [address] Zac KkegvUuY1m (Bld) [Mass fraction]11.1 %Critically high<=6.0[facility] Medical Centerment on above:Performed By: #### A1C #### [facility] [address] [place] [id number] Zac KarenLIPID PROFILEon 12-06-8304IPIV-HDL RATIO NORMSEE [facility] HospitalComascension providence hospital on above:Result Comment: 3.3 - 4.4 LOW RISK 4.4 - 7.1 AVERAGE RISK 7.1 - 11.0 MODERATE RISK >11.0 HIGH RISKPerformed By: #### LIPID, CMP #### [facility] [address] [id number] Zac KarenCholesterol [Mass/Vol]304 mg/dLCritically high<=200[facility] on above:Performed By: #### LIPID, CMP #### [facility] [address] [id number] Zac KarenCholesterol in HDL [Mass/Vol]52 mg/dLMetroHealth Main Campus Medical Center Comment on above:Performed By: #### LIPID, CMP #### [facility] [address] [id number] Zac KarenCholesterol in LDL [Mass/Vol]198.0 mg/dLMetroHealth Main Campus Medical Center Comment on above:Performed By: #### LIPID, CMP #### [facility] [address] [id number] Zac KarenCholesterol.total/Cholesterol in HDL [Mass ratio]5.8 {ratio}Normal The [facility] HospitalComment on above:Performed By: #### LIPID, CMP #### [facility] [address] [id number] Zac KarenHDL NORMAL> or = 60 mg/dl - LOW CARDIOVASCULAR RISK <40 mg/dl - HIGH CARDIOVASCULAR RISKMetroHealth Main Campus Medical CenterComment on above:Performed By: #### LIPID, CMP #### [facility] [address] [id number] Zac KarenLDL CALC NORMALSEE [facility] HospitalComascension prov[facility] hospital on above: Result Comment: <100 mg/dl OPTIMAL 100 - 129 mg/dl NEAR OR ABOVE OPTIMAL 130 - 159 mg/dl BORDERLINE HIGH 160 - 189 mg/dl HIGH >190 mg/dl VERY HIGHPerformed By: #### LIPID, CMP #### [facility] [address] [place] [address] Zac KarenTriglyceride [Mass/Vol]270 mg/dLCritically high<=150The [facility] HospitalComment on above:Performed By: #### LIPID, CMP #### [facility] [address] [place] [address] Zac KarenVLDL CALC54.0 mg/dLNormalThe [facility] HospitalComment on above: Performed By: #### LIPID, CMP #### [facility] [address] [place] [address] Zac KarenMICROALBUMIN, RAND URon 22-21-1509zUMI9.9 mg/LNormal<=30.0[facility] HospitalComment on above:Performed By: #### MALBR #### [facility] [address] [place] [address] Zac KarenPROF 14(COMP METB)on 84-80-0503Yoyopiq [Mass/Vol]3.6 g/dLNormal 3.5-5.0[facility] HospitalComment on above:Performed By: #### LIPID, CMP #### [facility] [address] [place] [address] Zac KarenAlbumin/Globulin [Mass ratio]0.9 {ratio}NormalMercy Health Kings Mills Hospital Comment on above:Performed By: #### LIPID, CMP #### [facility] [address] [place], [place] [id number] Zac KarenALP [Catalytic activity/Vol]126 U/UPpqfow55-230Nec [facility] Comment on above:Performed By: #### LIPID, CMP #### [facility] [address] [place] [address] Zac KarenALT [Catalytic activity/Vol]20 U/LNormal9-52[facility] Comment on above:Performed By: #### LIPID, CMP #### [facility] [address] [place] [address] Zac KarenAnion gap [Moles/Vol]12.1 mmol/LNormalThe Waiteville HospitalComment on above:Performed By: #### LIPID, CMP #### [facility] [address] [place] [address] Zac KarenAST [Catalytic activity/Vol]12 U/LCritically wwa88-30Bdr [facility] HospitalComment on above:Performed By: #### LIPID, CMP #### [facility] [address] [address] Zac KarenBilirubin [Mass/Vol]0.8 mg/dLNormal0.2-1.3TAvita Health System [facility] Hospital Comment on above:Performed By: #### LIPID, CMP #### [facility] [address] [address] Zac KarenCalcium [Mass/Vol]9.1 mg/dLNormal8.4-10.2[facility] Comment on above:Performed By: #### LIPID, CMP #### [facility] [address] [place] [address] Zac KarenChloride [Moles/Vol]100 mmol/WIxkqdv67-850GxoMercy Health Kings Mills Hospital Comment on above:Performed By: #### LIPID, CMP #### [facility] [address] [place] [address] Zac KarenCO2 [Moles/Vol]29.1 mmol/TYyrvox88.0-30.0[facility] Comment on above:Performed By: #### LIPID, CMP #### [facility] [address] [place] [address] Zac KarenCreatinine [Mass/Vol]0.88 mg/dLNormal0.52-1.04[facility] Comment on above:Performed By: #### LIPID, CMP #### [facility] [address] [place], [place] [address] Zac KarenEGFR-AF PANAMANIAN>60Normal>=60The [facility] HospitalComment on above: Performed By: #### LIPID, CMP #### [facility] [address] [id number] Zac KarenEGFR-NON AF PANAMANIAN>60Normal>=60The [facility] HospitalComment on above:Performed By: #### LIPID, CMP #### [facility] [address] [address] Zac KarenGlobulin (S) [Mass/Vol]4.1 g/dLNormalThFirelands Regional Medical CenterComment on above:Performed By: #### LIPID, CMP #### [facility] [address] [address] Zac KarenGlucose [Mass/Vol]287 mg/dLCritically gzvq40-767Qos [facility] HospitalComment on above:Performed By: #### LIPID, CMP #### [facility] [address] [address] Zac KarenPotassium [Moles/Vol]4.2 mmol/LNormal3.4-5.0[facility] Comment on above:Performed By: #### LIPID, CMP #### [facility] [address] [address] Zac KarenProtein [Mass/Vol]7.7 g/dLNormal6.1-8.2The [facility] HospitalComment on above:Performed By: #### LIPID, CMP #### [facility] [address] [address] Zac KarenSodium [Moles/Vol]137 mmol/ICpfwcm117-694Zgt [facility] Comment on above:Performed By: #### LIPID, CMP #### [facility] [address] [address] Zac KarenUrea nitrogen [Mass/Vol]14.0 mg/dLNormal7.0-17.0The [facility] HospitalComment on above:Performed By: #### LIPID, CMP #### [facility] [address] [address] Zac KarenUrea nitrogen/Creatinine [Mass ratio]15.9 mg/mgNormalThe [facility] HospitalComascension providence hospital on above:Performed By: #### LIPID, CMP #### [facility] [address] [id number] Zac Terri Vital Signs Date TimeVital SignValuePerforming KrrdqjwjuOqeelkqe13-86-2605 09:110400Body .8 cmAllison Petznick DO Work Phone: [phone] [place], [place] [address]10-27-2025 09:110400Body mass index (BMI) [Ratio]21.46 kg/s1Idmxeqe Petznick DO Work Phone: [phone] [place], [place] [address]10-27-2025 09:110400Body temperature 98.49 [degF]Mary Petznick DO Work Phone: [phone] [place], [place] [address]10-27-2025 09:110400Body bwubha92.61 kgAllison Petznick DO Work Phone: [phone] [place], [place] [address]10-27-2025 09:110400Diastolic blood yhbwyfkh42 mm[Hg]Mary Petznick DO Work Phone: [phone] [place], [place] [address]10-27-2025 09:110400Heart rate90 /min Mary Petznick DO Work Phone: [phone] [place], [place] [address]10-27-2025 09:115771JuY5% (BldA) [Mass fraction]98 %Mary Petznick DO Work Phone: [phone] [place], [place] [address]10-27-2025 09:110400Systolic blood imqgclms821 mm[Hg]Mary Petznick DO Work Phone: [phone] [place], [place] 6409808-13-2025 08:-0400Body fjaofv424.1 cmLeticia Silveroi MD Work Phone: [facility]08-13-2025 08:26-0400 Body mass index (BMI) [Ratio]21.1 kg/p5IyhlfoLeticia Silverio MD Work Phone: [facility]08-13-2025 08:26-0400 Body mhsheyslmwm04.4 [degF]Leticia Silverio MD Work Phone: [facility]08-13-2025 08:26-0400 Body slizre27.6 kgLeticia Silverio MD Work Phone: [facility]08-13-2025 08:26-0400 Diastolic blood fjncofmn04 mm[Hg]Leticia Silverio MD Work Phone: [facility]08-13-2025 08:26-0400 Heart rate85 /Balta Silverio MD Work Phone: [facility]08-13-2025 08:26-0400 SaO2% (BldA) [Mass fraction]97 %Leticia Silverio MD Work Phone: [facility]08-13-2025 08:26-0400 Systolic blood suafhmva472 mm[Hg]Leticia Silverio MD Work Phone: [facility]01-10-2025 08:42-0500 Body .1 cmSelect [facility]01-10-2025 08:42-0500Body mass index (BMI) [Ratio]21.1 kg/o1YzqazapyaSelect [facility]01-10-2025 08:42-0500Body ytipzc87.6 kg[facility]01[facility]10[facility]2025 08:42-0500Diastolic blood jlinoirv02 mm[Hg][facility] 05-09-2024 08:42-0500Heart rate94 /minSelect [facility] 05-09-2024 08:42-0500Systolic blood gycmpdbs706 mm[Hg][facility]09-23-2024 14:07-0400Body .3 Ancelmo Brown MD Work Phone: [facility]09-23-2024 14:07-0400Body mass index (BMI) [Ratio]18.88 kg/a9IlnsloxujHernan Brown MD Work Phone: [facility]09-23-2024 14:07-0400Body nxcqyl14.4 kgHernan Brown MD Work Phone: [facility]11-21-2023 09:00-0500Body owjjnr719.1 Luis Felipe Silverio Other [place] [employer] Other 394023-25-9097 09:00-0500Body mass index (BMI) [Ratio]21.1 kg/h6KflhfnLeticia Silverio Other [employer] Other 978777-28-5072 09:00-0500Body qywhop89.52 kgLeticia Silverio Other [employer] Other 11-21-2023 09:00-0500Diastolic blood vxbavjfn86 mm[Hg] Leticia Nusrat Other [employer] Other 11-21-2023 09:00-0500Systolic blood qinxlvnm369 mm[Hg] Leticia Nusrat Other [employer] Other Encounters Encounter DateEncounter TypeCare ProviderFacilityStart: 02-24-2025 End: 93-07-0267Wxgtxwsfd encounterAllkaitlyn Conley DO Work Phone: [facility] 230Comment on above: Medication QuestionStart: 02-23-2025 End: 46-21-6054Sldhse flowsheetMary Conley DO Work Phone: [facility] 230Start: 02-23-2025 End: 11-32-3188Rotqig flowsheetMary Conley DO Work Phone: [facility] 230Start: 02-23-2025 End: 28-77-3482Dqfdum outpatient new 45 minutesMary Conley DO Work Phone: [facility] 230Comment on above:Type 2 diabetes mellitus with hyperglycemia, without long-term current use of insulin (HCC) (Primary Dx); Essential hypertension; Pure hypercholesterolemia; Other fatigue; Postmenopausal; Encounter for screening mammogram for malignant neoplasm of breast; Encounter for screening for malignant neoplasm of colonStart: 02-23-2025 End: 97-46-8699dpgzvxolieFNAJHNV M PETZNICKNot AvailableStart: 12-10-2024 End: 30-82-1512xyjphwirpxXpfirr E Braun MD Work Phone: [facility] Work Phone: Start: 12-10-2024 End: 36-71-7485Yitdfpr encounter procedureErnierufinodiamond Valentinotrshoshana [facility] Work Phone: Start: 05-09-2024 End: 27-00-8915oncrhvsmlpQfocezalbMercy Health St[facility] Work Phone: Start: 05-09-2024 End: 88-30-2951Jimgiho encounter procedureFirelands Physician Group-[facility] Work Phone: Start: 86-76-1004Axk-patient / Non-visitFircommunity health systems Physician [facility] Work Phone: Start: 01-21-2024 End: 45-06-5104Ohlwai outpatient new 45 minutesAlexander Gilbert Brown MD Work Phone: OrthopaedicsComment on above:Acute pain of left knee (Primary Dx); Primary osteoarthritis of left kneeStart: 01-21-2024 End: 30-55-3459smbeutpllsGXXXCudetqjp:[facility]art: 01-21-2024 End: 97-86-4636Hrgrkwctjk hospital visit by physicianXr Ortho [facility]j Work Phone: RadiologyComment on above:Acute pain of left knee [M25.562]Start: 04-25-2023 End: 83-76-3611nmuifyerkcYpbnre Nusrat Other [facility] Other Start: 64-57-5116Ihuujemvu encounterMarcia [facility] Centertart: 03-30-2023 End: 02-28-6481cygvwrhkphMirbov Braun Other [place] [employer] Other Start: 51-72-7097Pjhfumzee encounterMarcia BraunOur Lady of Mercy Hospitaltart: 03-20-2023 End: 59-51-6871tzwajycqpiPtrtmo Braun Other [employer] Other Start: 19-88-5026Fndazh outpatient visit 15 minutes Leticia [facility] ClinicStart: 03-15-2023 End: 60-86-5339zakoerrfvoIotvdo Braun Other [employer] Other Start: 61-57-5589Xsmrctwdi for general adult medical examination without abnormal findingsLeticia Barillas [facility] ClinicStart: 02-22-7654Lglolaewi encounterMarjesi Foley [facility] ClinicStart: 39-35-2437Dbmjw health examinationLeticia Silverio Other [employer] Other Start: 08-20-2020 End: 36-95-9486seoricdqtzOU FOREIGN CARVALHOFacility:A5Dutpl: 08-16-2020 End: 64-64-2228wxvjeadgijFL MARCIA E BRAUNFacility:H1 Procedures DateProcedureProcedure DetailPerforming ClinicianStart: 12-21-8088Kablwghzdi glycosylated r5rRpuumai Juan Conley Work Phone: Start: 57-15-6788Udqepgflrujcka aspir&/inj major jt/bursa w/o usAlexander Gilbert Brown MD Work Phone: Start: 19-04-0579Qvkxdzpufg exam knee complete 4/more viewsAlexander Gilbert Brown MD Work Phone: Start: 00-88-3770Gghigvucl mammographyMarcia Silverio Other Screening for malignant neoplasm of breastJohanacia Silverio Other Screening for malignant neoplasm of colonJhoanacia Silverio Other Plan of Treatment DateCare ActivityDetailAuthorStart: 04-23-7397Tlphi microalbumin profile DTaP,Tdap,Td Vaccine (2 - Td or Tdap)[facility] Hospitaltart: 95-90-7005Anwctenneg A1c measurementDiabetes: Hemoglobin S4WQNDA HealthcareStart: 03-30-2025 End: 23-44-6686Kgoyicw encounter awapxvvan72/01/2025 2:00 PM EST Office Visit [facility] [address] [place] [address] Mary Conley, DO [address] [place] [address] [facility] 230 Start: 02-23-2025 End: 94-29-4459SUH Skeletal system Views for bone densityDEXA bone density Imaging Routine Postmenopausal Expected: 02/23/2025 (Approximate), Expires: 02/23/2026[facility] CenterComment on above:Expected: 02/23/2025 (Approximate), Expires: 02/23/2026Start: 02-23-2025 End: 65-82-8975GT Breast - bilateral ScreeningBilateral screening mammogram Imaging Routine Encounter for screening mammogram for malignant neoplasm of breast Expected: 02/23/2025 (Approximate), Expires: 04/25/2026[facility] Comment on above:Expected: 02/23/2025 (Approximate), Expires: 04/25/2026Start: 02-23-2025 End: 43-86-4755Eppxkfq encounter xzlbgwuzm41/27/2025 9:15 AM EDT Office Visit [facility] [address] [place] [address] Mary Conley, DO [address] [place] [address] [facility] 230Comment on above:ArrivedStart: 78-97-7476SXSRD-19 Vaccine ( season)COVID-19 Vaccine ( season)NOM HealthcareStart: 12-29-2024 Influenza vaccinationInfluenza Vaccine (#1)NOM HealthcareStart: 04-25-2024 End: 65-67-8062Bfhswya encounter borgywxtk26/27/2024 11:30 AM EST Office Visit Orthopaedics [address] [place], [place] [id number] Hernan Brown MD [address] [place], [place] [id number] left knee csiOrthopaedicsComment on above:left knee csiStart: 05-96-7542Zagpz-19 Vaccine ()Covid-19 Vaccine ()[facility] Hospitaltart: 39-66-2591Hbytoujzb vaccinationInfluenza Vaccine (#1)[facility] Hospitaltart: 34-25-8243Hsgbssp Directive DiscussionAdvance Directive DiscussionEast Liverpool City Hospitaltart: 04-01-8564FVpY/Tdap/Td Vaccines (2 - Td or Tdap)DTaP/Tdap/Td Vaccines (2 - Td or Tdap)[facility] CenterStart: 27-42-4512Iuucmjdmzcle Vaccine: 65+ (1 of 1 - PCV)Pneumococcal Vaccine: 65+ (1 of 1 - PCV)[facility] Hospitaltart: 13-22-4810Kyhwrzhwv for osteoporosisBone Density ScreeningEast Liverpool City Hospitaltart: 06-98-0262Gwqeyjxy Vaccine (1 of 2) Shingrix Vaccine (1 of 2)[facility] Hospitaltart: 79-86-5145Ggovglsc Screening Diabetes ScreeningEast Liverpool City Hospitaltart: 86-84-9971Wlsst panelLipid Screening [facility] Hospitaltart: 00-01-5476Qbbkcynxw for malignant neoplasm of colon [facility] Hospitaltart: 03-59-3115Rsygqpfdl for malignant neoplasm of breast [facility] Hospitaltart: 26-74-4258Frbyi screening for proteinDiabetes: Urine Protein ScreeningWestern Missouri Mental Health CenterStart: 70-75-3899Umdrhbk ScreeningAnxiety ScreeningEast Liverpool City Hospitaltart: 95-85-1456Oqxzhdiulj ScreeningDepression ScreeningEast Liverpool City Hospitaltart: 00-30-2368Fxelnrael C screeningHepatitis C ScreeningEast Liverpool City Hospitaltart: 96-55-0479Ozvwaomv screeningDiabetes: Retinopathy ScreeningNOMS HealthcareStart: 03-97-8928Ymzwynnppc A1c measurement Diabetes: Hemoglobin I7KZMFX HealthcareStart: 08-21-1954Medicare Annual Wellness (AWV)Medicare Annual Wellness (AWV)NOM[facility] HealthcareStart: 27-78-2249Pzshhqdhf for malignant neoplasm of colonNOSC HealthcareCBC W Auto Differential panel - BloodCBC and differential Lab Routine Type 2 diabetes mellitus with hyperglycemia, without long-term current use of insulin (HCC) Ordered: 02/23/2025[facility] HealthcareComment on above:Ordered: 02/23/2025omprehensive metabolic 1999 panel - Serum or PlasmaSelect [facility] Comprehensive metabolic 1999 panel - Serum or PlasmaComprehensive metabolic panel Lab Routine Type 2 diabetes mellitus with hyperglycemia, without long-term current use of insulin (HCC) Ordered: 02/23/2025[facility] Healthcare Work Phone: Comment on above:Ordered: 02/23/2025Lipid 1996 panel - Serum or PlasmaLipid panel Lab Routine Type 2 diabetes mellitus with hyperglycemia, without long-term current use of insulin (HCC) Ordered: 02/23/2025[facility] HealthcareComment on above:Ordered: 02/23/2025MG Breast - bilateral ScreeningSelect Medical [facility], [facility] ShawMicroalbumin/Creatinine panel in random UrineMicroalbumin / creatinine urine ratio Lab Routine Type 2 diabetes mellitus with hyperglycemia, without long-term current use of insulin (HCC) Ordered: 02/23/2025[facility] HealthcareComment on above:Ordered: 02/23/2025 Thyrotropin [Units/volume] in Serum or PlasmaTSH Lab Routine Other fatigue Ordered: 02/23/2025[facility] HealthcareComment on above:Ordered: 02/23/2025XR Ankle - right GE 3 [facility] Immunizations Immunization DateImmunizationNotesCare RwcbloxvVbosxien75-37-1481liqgjtdbx, high dose seasonal, preservative-freeAllison Petznick DO Work Phone: NOMS Ydmquwowpt16-60-0014Ercylgeuspnu Conjugate PCV 20 Mary Petznick DO Work Phone: noMS Gszbjqexqr54-84-4807exnnky vaccine recombinant Mary Petznick DO Work Phone: noUniversity Health [facility] Medical CenterOxsoubjtmp46-28-1129iwakzgwgk virus vaccine, unspecified formulationAllison Petznick DO Work Phone: noUniversity Health [facility] Medical CenterShedsppkgw96-13-5889Dyhibwkni, Seasonal, Quadrivalent, AdjuvantedAllison Petznick DO Work Phone: noUniversity Health Lake[facility] Medical CenterOyaozyjczh64-64-8415QIU, recombinant, protein subunit RSVpreF, adjuvant reconstitu, 120mcg/0.5mL, PF (Arexvy)Mary Petznick DO Work Phone: noUniversity Health Lake[facility] Medical CenterUhyxvziajy94-52-4959ycxmtraiw virus vaccine, unspecified formulationHernan Brown MD Work Phone: [facility] NorthHrnjof46-75-9619Xibaobwuv, Seasonal, Quadrivalent, AdjuvantedAllison Petznick DO Work Phone: noUniversity Health Lake[facility] Medical CenterVwwcikipop81-29-3246MCAIP-79 Vaccine Pfizer - Documentation Purposes OnlyLeticia Silverio Other [facility]10-08-2021influenza virus vaccine, split virus (incl. purified surface antigen)Leticia Silverio Other [place] [employer] Other 844268-88-9133tmybmolis virus vaccine, unspecified formulationSelect Medical [facility]10-08-2021Influenza, Seasonal, Quadrivalent, AdjuvantedAllison Petznick DO Work Phone: noUniversity [facility] Medical CenterUdrsnyoooz53-68-6124LJBSY-38 Vaccine Pfizer - Documentation Purposes OnlyLeticia Silverio Other [facility]02-27-2021COVID-19 Vaccine Pfizer - Documentation Purposes OnlyLeticia Silverio Other [facility]09-24-2020Influenza, High-dose Seasonal, Quadrivalent, Preservative FreeAllison Petznick DO Work Phone: noUniversity [facility] Medical CenterPclxcnvkwr58-18-8880hvnmcufzj, injectable, quadrivalent, preservative freeAllison Petznick DO Work Phone: [facility] CenterVmfzadyakn65-64-3007cjsyhvo toxoid, reduced diphtheria toxoid, and acellular pertussis vaccine, adsorbedAllison Petznick DO Work Phone: [facility] CenterPckqlgnvzh79-25-7872gwdeddwek, injectable, quadrivalent, preservative freeAllison Petznick DO Work Phone: [facility] CenterLiddggktwr82-42-4588hkygx btcosugrf-U0O2-11, preservative-free, injectableAllison Petznick DO Work Phone: [facility] Payers DatePayer CategoryPayerPolicy [id number] Health InsuranceMEDICAL MUTUAL Member Subscriber Plan / Payer (Effective 2024-Present) Name: Nathanael Zacarias Relation to Subscriber: Self Name: Nathanael Zacarias Payer ID: Not on file Type: Not on file Address: [address] [place] [id number] [facility]PPLE[facility] [id number] 2023-Present [phone] [address] [place] [id number] [id number] 2019Medicare [id number] [id number] 1960 [id number] [id number] lyzm8667-m01z-933c-9b3f-062920f4qg9w Social History DateTypeDetailFacilityStart: 01-20-2024 End: 52-34-7206Coj Assigned At [facility] - AkronTobacc smoking status NHIS Tobacco smoking consumption unknownNOMS HealthcareStart: 01-20-2024 End: 99-39-3564Jnyflrp of Social functionEast Liverpool City Hospitaltart: 16-26-4928Pyifc Depression Screening Ttbrzumhyl3Ngygzwrwe ClinicStart: 51-13-2591Yxq assigned at birthNot on fileEast Liverpool City Hospitaltart: 05-09-2024 End: 54-57-6040Mhlbogh smoking status NHISNever smoked tobacco (finding) [facility] Centertart: 24-84-9641EkfSgasfi (finding)[facility] Centertart: 83-46-3581Igb Assigned At [facility] HospitalFeKettering Health Hamiltontart: 31-50-7397Shprgjs use and exposureSmokeless tobacco non-userNOSC HealthcareStart: 19-23-0528Prkexwsus beverage intake Lifetime non-drinker (finding)[facility] CenterHow often do you have a drink containing alcohol?NeverNOUniversity Health Lakewood Medical Center Functional Status TbipShypfyzpwrMolzsqMlcoehnz65-22-8119Bzbeq score [AUDIT-C]0 02/23/2025 9:13 AM EDT Zayda Horton LPNNOMS Phkzzbujyu16-79-8233[place] Health Questionnaire 2 item (PHQ-2) [Reported][facility] Clinical Notes 03-15-2023 to 02-24-2025 Note Date & BqiwFvwgBqjrbndv97-53-3097 Telephone encounter Note* Telephone Encounter - Hilda Pimentel - 02/24/2025 1:09 PM EDT Patient called and stated that her [facility] [place] will not fill the lantus without an explanation of why she needs this. Just a heads up. [facility] CenterRdubzavrxq84-97-1250 Miscellaneous Notes* Telephone Encounter - Hilda Loren - 02/24/2025 1:09 PM EDT Patient called and stated that her pharmacy [facility] [place] will not fill the lantus without an explanation of why she needs this. Just a heads up. documented in this encounterWestern Missouri Mental Health CenterPchfwqwsgr13-36-2033 History of Present illness Narrative* Mary Conley DO - 02/23/2025 10:15 AM EDTAssociated Problem(s): [...] if they have any problems or questions. Nathanael Zacarias is struggling to gain control of [...] her own. Will start lantus. * Mary Conley DO - 02/23/2025 9:15 AM EDT Images from the original note were not included. Nathanael Zacarias is a 69 y.o. female presents [...] A1c: Eye exam: 2024- [facility] [place] Annual labs: Due Current concerns include: Here to get established. Last seen her former pco leticia silverio 03/2024 Former ENDO: PCP Bg levels: 150-220 [...] with meals PO (1000 MG TABS) Labs [facility] HEMOGLOBIN A1C/HEMOGLOBIN.TOTAL:MFR:PT:BLD:QN: 9.4 Outpatient [...] Diastolic 76 Heart Rate 90 Temp 98.5 F Height (in) 5' 4.5 Weight (lb) 127 [...] if they have any problems or questions. Nathanael Zacarias is struggling to gain control of [...] General Surgery Follow up with Dr. Mary Conley in 30 days (on 03/25/2025). Patient's Medications [...] [3] No Known Allergies documented in this encounterWestern Missouri Mental Health CenterTvttncfgyy35-43-0421 NoteHNO ID: [id number] Author: HERNAN BROWN MD Service: ? Author [...] knee joint Informed Consent Consent Obtained: Verbal [place] Protocol A moment to CARE was completed. [...] risk for bone los (more content not included)...[facility]09-23-2024 History of Present illness Narrative* Hernan Brown MD - 01/21/2024 2:05 PM EDTAssociated Order(s): Large Joint Arthro/Inj: L knee joint Post-Procedure Diagnose(s): Primary osteoarthritis of left knee Images from the original note were not included. CONSULT ORTHOPAEDIC: KNEE PRIMARY CARE PHYSICIAN: Leticia Silverio MD REFERRING PROVIDER: SELF ASSESSMENT & PLAN Impression: Left Knee Severe Degenerative Osteoarthritis, Primary 68 year old healthy female with left knee end stage OA. Very active . Walks multiple miles per day.Caregiver for her grandchildren. Not ready for total knee arthroplasty at this time. Plan for left knee csi today Fu 3 mos Leonel follow Large Joint Arthro/Inj: L knee joint Informed Consent Consent Obtained: Verbal [place] Protocol A moment to CARE was completed. [...] Risk High: YOEL Score > 75 Moderate: OYEL 50-75 Normal: YOEL < 50 Area Deprivation [...] densitometry scan and if indicated on the bonedensity results, a consult to a bone health specialist (Rheumatology, Endocrinology, or Women's Health) for bone assessment. Risk Factors: Additional Risk Factors Malnutrition: No Malnutrition Screening Tool (MST) score on file- please complete the MST screeningtool (click here to open) and refresh the note. There is no problem list on file for this patient. SUBJECTIVE CHIEF COMPLAINT: left knee pain HPI: Nathanael Zacarias is a 68 year old patient with the presenting complaint of New and Pain of the Left Knee. Nathanael Zacarias has had progressive problems with the knee(s) constantly over the past 4 year(s)interfering with activities which include walking and standing [...] 2024 TIME: 2:09 PM documented in this encounterSelect [facility] History of Present illness Narrative* Arabella Munoz RT(R) - 01/21/2024 2:00 PM EDT Radiology Service Progress Note PATIENT NAME: Nathanael Zacarias DATE OF SERVICE: January 21, 2024 TIME: 1:44 PM PATIENT IDENTITY VERIFICATION COMPLETED USING TWO (2) IDENTIFIERS: Name and Date of confirmedby patient verbally. FALL SCREENING: Has the patient had 2 falls in the last year or 1 fall with injury or currently using an Ambulatory Assistive Device (Walker, Cane, Wheelchair, Crutches, etc.)? No PATIENT GENDER DATA: Female. status: : No status: NO. PATIENT RELEVANT IMPLANT DATA REVIEWED: Not Applicable PATIENT PRESENTS WITH AN IMPLANTABLE OR ATTACHED VENEER SHEET REPAIRER: No RADIOLOGY DEPARTMENT: General X-ray: Exam(s) Completed: Lower Extremity X- Ray(s): Knee, AP / Lat / Tunne / Merchant Left and Wt. Bearing PERIPHERAL IV DATA: Not applicable SIGNED BY: RT Melinda(Joseph) January 21, 2024 1:44 PM documented in this encounterSelect [facility]ty [facility]09-23-2024 NoteHNO ID: [id number] Author: ARABELLA MUNOZ RT(R) Service: Radiology Author [...] PATIENT PRESENTS WITH AN IMPLANTABLE OR ATTACHED VENEER SHEET REPAIRER: No RADIOLOGY DEPARTMENT: General X-ray: Exam(s) Completed: Lower Extremity X-Ray(s): Knee, AP / Lat / Tunne / Merchant Left and Wt. Bearing PERIPHERAL IV DATA: Not applicable SIGNED BY: Christen Salas RT Arabella Munoz RT(R) January 21, 2024 1:44 [facility]12-27-2023 Evaluation note* Encounter Date Diagnosis Assessment Notes Treatment Notes Treatment Clinical Notes Mar, Type 2 diabetes praneeth itus with hyperglycemia, without long-term current use of insulin (ICD-10 - E11.65) [facility] Other 12-01-2023 Evaluation note* Encounter Date Diagnosis Assessment Notes Treatment Notes Treatment Clinical Notes Mar, Abnormal mammogram (ICD-10 - R92 .8) [facility] Other 11-21-2023 Evaluation note* Encounter Date Diagnosis Assessment Notes Treatment Notes Treatment Clinical Notes Feb, Type 2 diabetes praneeth itus with hyperglycemia, without long-term current use of insulin (ICD-10 - E11.65) Increased dose to 10mg daily. Gave 6 weeks of samples. Pt will call in 4-5 weeks with update in glucose readings for further treatment plans. Feb,HTN (hypertension) (ICD-10 - I10)Blood pressure remains well controlled at this time. Denies cardiac symptoms. Shows no signs or symptoms or poor control. Patient to continue with above medication and we will continue to monitor. Advised to pay attention to body and symptoms. Any developing patterns. Stay well hydrated. Feb,Hyperlipidemia, mild (ICD-10 - E78.5)Labs reviewed and discussed. [facility] Other 11-16-2023 Evaluation note* Encounter Date Diagnosis Assessment Notes Treatment Notes Treatment Clinical Notes Feb, Wellness examination (ICD-10 - Z 00.00) [facility] Other Evaluation noteNo InformationNort infibond Other Evaluation note* Diagnosis Acute pain of left knee Acute pain of left knee- Primary Primary osteoarthritis of left knee Primary localized osteoarthrosis, lower leg documented in this encounter [facility]* Diagnosis Acute pain of left knee documented in this encounter [facility]Eval[facility]* Diagnosis Onset Date Resolution Status Admit Date Medicare annual wellness visit, subseque nt acuteJanuary 2024 8:36amScreening mammogram for breast canceracuteJanuary 2024 8:36amType 2 diabetes mellitus with hyperglycemiaacuteJanuary 2024 8:36am [facility] Work Phone: Evaluation note* Diagnosis Onset Date Resolution Status Admit Date Right ankle injury acuteAugust 2024 8:22amRight ankle painacuteAugust 2024 8:22am [facility] Work Phone: Evaluation note* Diagnosis Type 2 diabetes mellitus with hyperglycemia, without long-term current use of insulin (HCC)- Primary Essential hypertension Unspecified essential hypertension Pure hypercholesterolemia Other fatigue Postmenopausal Asymptomatic postmenopausal status (age-related) (natural) Encounter for screening mammogram for malignant neoplasm of breast Encounter for screening for malignant neoplasm of colon documented in this encounter [facility] HealthcareHistory general Narrative - Reported* Type Description Date Surgical History ovarian cyst 1992 Surgical History tonsillectomy Surgical HistoryC sectionHospitalization HistoryChild x2 [facility] Other History general Narrative - Reported* Type Description Date Medical History HTN (hypertension) Medical HistoryHyperlipidemia, mildMedical HistoryType 2 diabetes mellitus with hyperglycemia, without long-term current use of insulinSurgical Historyovarian lmfh8216Ivlbuxum HistorytonsillectomySurgical HistoryC sectionHospitalization HistoryChild x2 [facility] Other Reason for referral (narrative)* Diagnostic Procedure Only (Routine) - ClosedSpecialtyDiagnoses / ProceduresReferred By Contact Referred To ContactXR IMAGING Diagnoses Acute pain of left knee Procedures XR KNEE GENERAL 4V AP BOTH/PA BOTH/LAT/MERC LEFT RADIOLOGIC EXAM KNEE COMPLETE 4/MORE VIEWS Hernan Brown MD [address] [place] [address] [place] [address] Referral IDStatusReasonStart DateExpiration DateVisits RequestedVisits [id number] Auto-Generated Referral Select [facility] for referral (narrative)* Diagnostic Procedure Only (Routine) - ClosedSpecialtyDiagnoses / ProceduresReferred By ContactReferred To ContactXR IMAGING Diagnoses Acute pain of left knee Procedures XR KNEE GENERAL 4V AP BOTH/PA BOTH/LAT/MERC LEFT RADIOLOGIC EXAM KNEE COMPLETE 4/MORE VIEWS Hernan Brown MD [address] [place] [address] Xr Imaging [facility]95 Referral IDStatusReasonStart DateExpiration DateVisits RequestedVisits [id number] Auto-Generated Referral [facility] for referral (narrative)No reason for referral information availableTwin City Hospital Work Phone: Summary Purpose Family History Relationship Condition Age at Onset Recorded Date/T monica father Heart disease Unknown DeceasedUnknownmotherMalignant neoplasmUnknown Advance Directives Advance Directive Response Recorded Date/ [...] 2024 8:36am Screening mammogram for breast cancer Jordan [place] 2024 8:36am Type 2 diabetes mellitus with hyperglyce mikel May 09, 2024 8:36am Chief Complaint Admit Date Ankle injury December 10, 2024 8: 22am Reason for Visit Admit Date Right ankle injury December 10, 2024 8: 22am Right ankle pain December 10, 2024 8: 22am Additional Source Comments INFORMATION SOURCE (unrecogn ized section and content) DATE CREATED AUTHOR 08/27/2020 [facility] DATE CREATED AUTHOR AUTHOR'S ORGANIZ ATION 01/23/2024 [facility] DATE CREATED AUTHOR AUTHOR'S ORGANIZ ATION 02/24/2025 [facility] EPIC REASON FOR VISIT (unrecogniz ed section and content) ReasonCommentsNewPainReasonCommentsRadio Gen RMPSpecialtyDiagnoses / Procedures Referred By ContactReferred To ContactXR IMAGING Diagnoses Acute pain of left knee Procedures XR KNEE GENERAL 4V AP BOTH/PA BOTH/LAT/MERC LEFT RADIOLOGIC EXAM KNEE COMPLETE 4/MORE VIEWS Hernan Brown MD [address] [place] [address] [place] [address] Referral IDStatusReasonStart DateExpiration DateVisits RequestedVisits [id number] Auto-Generated Referral [id number] patientReasonOnset DateCommentsMedication Ifciglek66/28/2025 Source Comments (unrecognize d section and content) In the event this informatio n is protected by the Federal Confidentiality of Alcohol and Drug Abuse Patient Records regulations: The Federal rules restrict any use of the information to criminally investigate or prosecute any alcohol or drug abuse patient.[facility] NorthIn the event this information is protected by the Federal Confidentiality of Alcohol and Drug Abuse Patient Records regulations: The Federal rules restrict any use of the information to criminally investigate or prosecute any alcohol or drug abuse patient.[facility] Care Teams (unrecognized sec tion and content) Team Status: Active Member Role Status Dates Leticia Silverio MD Primary Care Provider Active Team Status: Inactive Member Role Status Dates Leticia Silverio MD Primary Care Provider Active Start: December 10, 2024 End: December 10, 2024Zayda Castellano APRN MEDICAID PLAN COMPLIANCE DIRECTOR-CAttending ProviderActive Start: December 10, 2024 End: December 10, 2024Team MemberRelationshipSpecialtyStart DateEnd Date Leticia Silverio MD [address] [place] [address] PCP - [facility]12/25/18Team MemberRelationshipSpecialtyStart DateEnd Date Leticia Silverio MD [address] [place] [address] PCP - [facility]12/25/18 Team Status: Active Member Role Status Dates Leticia Silverio MD Primary Care Provide r, Attending Provider Active Start: April 11, 2024 Team Status: Inactive Member Role Status Dates Leticia Silverio MD Primary Care Provide r, Attending Provider Active Start: May 09, 2024 End: May 09, 2024Team MemberRelationshipSpecialtyStart DateEnd Date Mary Conley DO [address] [place] [address] PCP - [facility]02/19/25Team MemberRelationshipSpecialtyStart Date End Date Mary Conley DO [address] [place] [address] PCP - GeneralFamily Sbpainjm23/23/25Team MemberRelationshipSpecialtyStart Date End Date Mary Conley [address] [place] [address] PCP - GeneralFamily Maopdlce55/23/25 Goals (unrecognized section and content) Goals may [...] BE BASED ON THE PRIMARY CLINICAL RECORDS. [facility]. provides no warranty or guarantee of the accuracy or completeness of information in this document.
--- OUTSIDE RECORDS SUMMARY | 2025-02-28 09:22 | XMS_ITS | Encounter Summary ---
Author Organization [facility] Address [address] [place] [address] Care Team Providers Care Croze Cutter Helper Name Role Phone Mary Nelson DO Primary Care Provider +1- [phone] Reason for Visit * ReasonOnset DateCommentsMedication Mixvrxgy95/28/2025 Encounter Details DateTypeDepartmentCare Team (Latest Contact Info)Wkgopknosju11/28/2025Telephone [facility] [address] [place] [address] Mary Nelson, [address] [place] [address] Medication Question Social History Tobacco UseTypesPacks/DayYears UsedDateSmoking Tobacco: NeverSmokeless Tobacco: NeverAlcohol UseStandard Drinks/WeekCommentsNever0 (1 standard drink = 0.6 oz pure alcohol)PHQ-2AnswerDate RecordedPatient Health Questionnaire-2 Score0 02/23/2025UDIT-CAnswerDate RecordedQ1: How often do you have a drink containing alcohol?Never02/23/2025Q2: How many drinks containing alcohol do you have on a typical day when you are drinking?Patient does not drink02/23/2025Q3: How often do you have six or more drinks on one occasion?Never02/23/2025Comments UnknownSex and Gender InformationValueDate RecordedSex Assigned at BirthNot on fileLegal WimLosdff42/15/2023 6:54 PM EDTGender IdentityNot on fileSexual OrientationNot on filedocumented as of this encounter Miscellaneous Notes * Telephone Encounter - Izabel Tejada LPN - 02/24/2025 1:21 PM EDT PA initiated for Lantus through [facility]. States [facility] does not manage PAs. -[facility]- spoke with Jamir, who states insurance was just requesting generic, he is not sure why we were called. Order placed for generic should be at pharmacy tomorrow ($78/100 days). -P/c to pt informing her of above. Pt voiced understanding. * Telephone Encounter - Hilda Pimentel - 02/24/2025 1:09 PM EDT Patient called and stated that [facility] [place] [facility] without an explanation of why she needs this. Just a heads up. documented in this encounter Plan of Treatment DateTypeDepartmentCare Team (Latest Contact Info)Kvdtlfrhcoi67/01/2025 2:00 PM ESTOffice Visit [facility] [address] [place] [address] Mary Nelson DO [address] [place] [address] 05/25/2025 10:00 AM ESTOffice Visit [facility] [address] [facility] [address] [place] [phone] Pardeep Benito MD [address] [facility] [address] [place] [address] documented as of this encounter Visit Diagnoses Not on filedocumented in this encounter Care Teams Team MemberRelationshipSpecialtyStart DateEnd Date Mary Nelson DO [address] [place] [address] PCP - GeneralFamily Vskxjzfy69/23/25documented as of this encounter
--- OUTSIDE RECORDS SUMMARY | 2025-02-28 09:22 | XMS_ITS | Encounter Summary ---
Author Organization [facility] Address [address] [place] [address] Care Team Providers Care Physical Therapist Name Role Phone Mary Nelson Juan KING Primary Care Provider +1- [phone] Encounter Details DateTypeDepartmentCare Team (Latest Contact Info)Bimcfofnyba33/27/2025Travel Social History Tobacco UseTypesPacks/DayYears UsedDateSmoking Tobacco: NeverSmokeless [...] InformationValueDate RecordedSex Assigned at BirthNot on fileLegal EriHccgwl45/15/2023 6:54 PM EDTGender IdentityNot on fileSexual OrientationNot on filedocumented as of this encounter Functional Status * AUDIT-C ScoreAnswerDate of OfmxryzxdkQbpupi892/27/2025 9:13 AM Zayda James LPN * QuestionAnswerDate [...] 9:10 AM Zayda James LPNPatient Health Questionnaire-2 Jmmln013 9:10 AM Zayda Cuevas LPN documented as of this encounter Plan of Treatment DateTypeDepartmentCare Team (Latest Contact Info)Qeyhzlabdcm54/01/2025 2:00 PM ESTOffice Visit [facility] [address] [place] [address] Mary Nelson DO [address] [place] [address] 05/25/2025 10:00 AM ESTOffice Visit [facility] [address] [facility] [address] [place] [address] Pardeep Benito MD [address] [facility] [address] [place] [address] documented as of this encounter Visit Diagnoses Not on filedocumented in this encounter Care Teams Team MemberRelationshipSpecialtyStart DateEnd Date Mary Nelson DO [address] [place] [address] PCP - GeneralFamily Zqbjvssq75/23/25documented as of this encounter
--- OUTSIDE RECORDS SUMMARY | 2025-02-28 09:22 | XMS_ITS | Encounter Summary ---
Author Organization [facility] Address [address] [place] [address] Care Team Providers Care Quantity Surveyor Name Role Phone Unavailable Primary Care Provider Unavailabl e Encounter Details DateTypeDepartmentCare Team (Latest Contact Info)Fedumdtxrwp32/21/2025Telephone [facility] [address] [place] [address] Mary Nelson, DO [address] [place] [address] Social History Tobacco UseTypesPacks/DayYears UsedDateSmoking Tobacco: Never Assessed CommentsUnknownSex and Gender InformationValueDate RecordedSex Assigned at Not on fileLegal DhiNijedj47/15/2023 6:54 PM EDTGender IdentityNot on fileSexual OrientationNot on filedocumented as of this encounter Miscellaneous Notes * Telephone Encounter - Angélica Blanco - 02/17/2025 2:54 PM EDT LVM for Pt to call back and schedule 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 documented in this encounter Plan of Treatment DateTypeDepartmentCare Team (Latest Contact Info)Agqojnvvdvk47/01/2025 2:00 PM ESTOffice Visit [facility] [address] [place] [address] Mary Nelson, DO [address] [place] [address] 05/25/2025 10:00 AM ESTOffice Visit [facility] [address] [facility] 150 [place] [address] Pardeep Benito MD [address] [facility] 150 [place] [address] documented as of this encounter Visit Diagnoses Not on filedocumented in this encounter
--- OUTSIDE RECORDS SUMMARY | 2025-02-28 09:22 | XMS_ITS | Encounter Summary ---
Author Organization [facility] Address [address] [place] [address] Care Team Providers Care Route Sales Driver Name Role Phone Mary Nelson DO Primary Care Provider +1- [phone] Encounter Details DateTypeDepartmentCare Team (Latest Contact Info)Kbkzsufzsey40/27/2025amboo flowsheet [facility] [address] [place] [address] Mary Nelson DO [address] [place] [id number] Social History Tobacco UseTypesPacks/DayYears UsedDateSmoking Tobacco: NeverSmokeless [...] InformationValueDate RecordedSex Assigned at BirthNot on fileLegal YqjBugokz50/15/2023 6:54 PM EDTGender IdentityNot on fileSexual OrientationNot on filedocumented as of this encounter Plan of Treatment DateTypeDepartmentCare Team (Latest Contact Info)Mfhsfqqzvgo14/01/2025 2:00 PM ESTOffice Visit [facility] [address] [place] [address] Mary Nelson DO [address] [place] [address] 05/25/2025 10:00 AM ESTOffice Visit [facility] [address] [facility] [address] [place] [phone] Pardeep Benito MD [address] [facility] 150 [place] [address] documented as of this encounter Visit Diagnoses Not on filedocumented in this encounter Care Teams Team MemberRelationshipSpecialtyStart DateEnd Date Mary Nelson DO [address] [facility] [address] [place] [address] PCP - GeneralFamily Eumaemsb81/23/25documented as of this encounter
--- OUTSIDE RECORDS SUMMARY | 2025-02-28 09:22 | XMS_ITS | Clinical Summary ---
Author Organization [facility] Address [address] [place] [address] Care Team Providers Care Cyber Security Administrator Name Role Phone Mary Nelson DO Primary Care Provider +1- [phone] Allergies No known active allergies Medications MedicationSigDispense QuantityRefillsLast FilledStart DateEnd DateStatus atorvastatin (Lipitor) 40 MG tablet Take 40 mg by mouth Daily5Active dapagliflozin (Farxiga) 10 MG Take 10 mg by mouth Daily5Active metFORMIN (Glucophage) 1000 MG tablet Take 1,000 mg by mouth 2 (two) times a day with meals5Active lisinopril-hydroCHLOROthiazide 20-12.5 MG tablet Take 1 tablet by mouth Daily5Active insulin glargine (Lantus SoloStar) 100 UNIT/ML pen Indications:Type 2 diabetes mellitus with hyperglycemia, without long-term current use of insulin (HCC)Inject 12 Units under the skin Daily 15 mL 5Active pen needle 33G x 4 mm misc Indications:Type 2 diabetes mellitus with hyperglycemia, without long-term current use of insulin (HCC)Injections subcutaneous daily 100 each 5Active lovastatin (Mevacor) 10 MG tablet Take 10 mg by mouth at wexakls03/13/Discontinued Active Problems ProblemNoted DateDiagnosed DateEssential csilbrhhsbpe58/27/2025Pure lgjsfzxhtddqyoourewc48/27/2025Type 2 diabetes mellitus with hyperglycemia 02/20/2025 Assessment & Plan (02/23/2025 10:15 AM EDT): During the appointment today all pertinent labs, [...] snacks. They should also avoid any sugary drinks., Discussed importance of checking blood glucose regularly and bringing them in to their appointment in order for me to better adjust their [...] insulin on her own. Will start lantus. Encounters DateTypeDepartmentCare GnssWllcklwmoon03/28/2025Telephone [facility] [address] [place] [address] Mary Nelson, DO Medication Gxfhmyzu00/27/2025 9:15 AM EDTOffice Visit [facility] [address] [place] [phone] Mary Nelson, DO Type 2 diabetes mellitus with hyperglycemia, without long-term current use of insulin (HCC) (Primary Dx); Essential hypertension; Pure hypercholesterolemia; Other fatigue; Postmenopausal; Encounter for screening mammogram for malignant neoplasm of breast; Encounter for screening for malignant neoplasm of colon02/23/2025amboo flowsheet [facility] [address] [place] [address] Mary Nelson, 02/23/20255644Fuqkqb57/21/2025Telephone [facility] [address] [place] [address] Mary Nelson DO from Last 3 Months Immunizations ImmunizationAdministration DatesNext DueInfluenza, High Dose Seasonal, Preservative Free04/07/2024Influenza, High-dose Seasonal, Quadrivalent, Preservative Free01/22/2020Influenza, Seasonal, Quadrivalent, Adjuvanted 05/14/2023,03/02/2022,02/04/2021Influenza, injectable, quadrivalent, preservative free03/03/2019,02/05/2018Novel srkuvflyr-P3T4-69, preservative-free 06/21/2009Pneumococcal Conjugate PCV 4RSV, recombinant, protein subunit RSVpreF, adjuvant reconstitu, 120mcg/0.5mL, PF (Arexvy)05/14/2023Tdap 03/03/2019Zoster, Bfuvkpugpea61/09/2024 Family History Medical HistoryRelationNameCommentsDiabetesBrotherHeart attackFatherHeart diseaseFatherBreast cancerMotherRelationNameStatusCommentsBrotherAliveFather DeceasedMotherDeceased Social History Tobacco UseTypesPacks/DayYears UsedDateSmoking Tobacco: NeverSmokeless Tobacco: Never Tobacco Cessation:Counseling Given: Not Answered Alcohol UseStandard Drinks/WeekCommentsNever0 (1 standard drink = 0.6 oz pure alcohol)PHQ-2AnswerDate RecordedPatient Health Questionnaire-2 Ihwlk653 AUDIT-CAnswerDate RecordedQ1: How often do you have a drink containing alcohol? Never02/23/2025Q2: How many drinks containing alcohol do you have on a typical day when you are drinking?Patient does not drink02/23/2025Q3: How often do you have six or more drinks on one occasion?Never02/23/2025CommentsUnknown Sex and Gender InformationValueDate RecordedSex Assigned at BirthNot on file Legal VpvTqbshs84/15/2023 6:54 PM EDTGender IdentityNot on fileSexual OrientationNot on file Last Filed Vital Signs Vital SignReadingTime TakenCommentsBlood Vhmvgqbl291/7602/23/2025 9:11 AM EDT Mjcsn3703/27/2025 9:11 AM WKRFdszwjiwnzf19.9 ??C (98.5 ??F)02/23/2025 9:11 AM EDTRespiratory Rate--Oxygen Tlyshjrhtn18%02/23/2025 9:11 AM EDTInhaled Oxygen Concentration--Ymyilu43.6 kg (127 lb)02/23/2025 9:11 AM LEADfislh422.8 cm (5' 4.5 )02/23/2025 9:11 AM EDTBody Mass Index21.4602/23/2025 9:11 AM EDT Plan of Treatment DateTypeDepartmentCare Team (Latest Contact Info)Bhwsglkmgaa94/01/2025 2:00 PM ESTOffice Visit [facility] [address] [place] [address] Mary Nelson DO [address] [place] [address] 05/25/2025 10:00 AM ESTOffice Visit [facility] [address] [facility] [address] [place] [address] Pardeep Benito MD 7[address] [facility] [address] [place] [address] Health MaintenanceDue DateLast DoneCommentsCT Facvytwaeqmw04/21/1954Colonoscopy 4Colorectal Cancer Jrdwhgrhf93/21/1954FIT-DNA1953FIT1953 FOBT1953Medicare Annual Wellness (AWV)1955 9450Ylptiylfddfqf75/21/1956 Diabetes: Retinopathy Aleiwxayb87/21/1964Diabetes: Urine Protein Screening 12/18/19723448Ykpfsshez04/21/1994DTaP/Tdap/Td Vaccines (2 - Td or Tdap)03/31/2019 03/03/2019COVID-19 Vaccine ( season), 02/04/2021, 07/17/2020, Additional history existsInfluenza Vaccine (#1)512/12/2023, 05/14/2023, 03/02/2022, Additional history existsDiabetes: Hemoglobin A1C 61Pneumococcal Vaccine: 65+ TicokPeywvefvs48/09/2024HIB VaccinesAged OutNo longer eligible based on patient's age to complete this topic HPV VaccinesAged OutNo longer eligible based on patient's age to complete this topicHepatitis A VaccinesAged OutNo longer eligible based on patient's age to complete this topicHepatitis B VaccinesAged OutNo longer eligible based on patient's age to complete this topicIPV VaccinesAged OutNo longer eligible based on patient's age to complete this topicMeningococcal B VaccineAged OutNo longer eligible based on patient's age to complete this topicMeningococcal VaccineAged OutNo longer eligible based on patient's age to complete this topicRotavirus VaccinesAged OutNo longer eligible based on patient's age to complete this topic Procedures Procedure NamePriorityDate/TimeAssociated DiagnosisCommentsPOCT GLYCOSYLATED HEMOGLOBIN (HGB A1C)Ahyftkp0502/23/2025 9:23 AM EDT Type 2 diabetes mellitus with hyperglycemia, without long-term current use of insulin (HCC) from Last 3 Months Results * (ABNORMAL) POCT glycosylated hemoglobin (Hb A1C) docked device (02/23/2025 9:23 AM EDT)ComponentValueRef RangeTest MethodAnalysis TimePerformed At Pathologist SignatureHemoglobin A1C9.4Specimen (Source)Anatomical Location / LateralityCollection Method / VolumeCollection TimeReceived TimeBloodVenous blood specimen / Xxqfead5402/23/2025 9:23 AM EDT Narrative Authorizing ProviderResult TypeResult StatusMary Nelson DOPOINT OF CARE TEST ENTER/EDIT ORDERABLESFinal Result from Last 3 Months Insurance * Guarantor: Susanna Zacarias AAccount TypeRelation to PatientDate of BirthPhone Billing AddressPersonal/KefdqiBnkv16[birth year][address] [address] Care Teams Team MemberRelationshipSpecialtyStart DateEnd Date Mary Nelson DO [address] [facility] [address] [place] [address] PCP - GeneralFamily Cwqjtlpd22/23/25
[2025-02-28 09:37] LABS: Hematocrit 42.2 % (36.0-48.0); Hemoglobin 14.2 g/dL (12.0-16.0); Immature Granulocytes Abs Auto 0.01 10^3/uL (0.00-0.03); Immature Granulocytes Pct Auto 0.2 % (0.0-0.5); Lymphocytes Absolute Auto 1.4 10^3/uL (1.2-3.8); Mean Corpuscular HGB Conc 33.6 g/dL (29.9-35.2); Mean Corpuscular Hemoglobin 27.5 pg (26.7-34.0); Mean Corpuscular Volume 81.8 fL (81.0-99.0); Platelet Count 220 10^3/uL (150-450); Red Blood Count 5.16 10^6/uL (4.20-5.40); White Blood Count 6.2 10^3/uL (4.0-11.0)
[2025-02-28 10:09] LABS: Alanine Aminotransferase 15 U/L (14-59); Anion Gap 15.9; Aspartate Amino Transferase 12 U/L (15-37); Blood Urea Nitrogen 37.0 mg/dL (7.0-18.0); Calcium 10.0 mg/dL (8.5-10.1); Carbon Dioxide 27.5 mmol/L (21.0-32.0); Chloride 101 mmol/L (98-107); Estimated GFR (African America >60 (>=60 mL/min/1.73m^2); Estimated GFR (Non-African Ame >60 (>=60 mL/min/1.73m^2); Glucose 173 mg/dL (74-106); Potassium 4.4 mmol/L (3.5-5.1); Sodium 140 mmol/L (136-145)
[2025-02-28 10:10] LABS: Albumin Globulin Ratio 1.1; Albumin Level 4.1 g/dL (3.4-5.0); Alkaline Phosphatase 79 U/L (46-116); Cholesterol 289 mg/dL (<=200); Globulin 3.8 g/dL; HDL Cholesterol 66 mg/dL (40-60); Thyroid Stimulating Hormone 1.694 uIU/mL (0.358-3.740); Total Protein 7.9 g/dL (6.4-8.2); Triglycerides 158 mg/dL (<=150); VLDL CHOLESTEROL 31.6 mg/dL
== END 2025-02-28 09:18 | disposition home or self-care (01) ==
LOC: LAB 09:18
PROVIDERS: PCP Family Medicine; Visit Provider Family Medicine
DX: E11.65 Type 2 diabetes mellitus with hyperglycemia (principal); R53.83 Other fatigue
CPT/HCPCS: 36415; 80053; 80061; 82043; 82570; 84443; 85025